=== PATIENT | male | born 1955 | race Caucasian/White ===

== ENCOUNTER 2017-08-07 12:42 | Observation (INO) | payer OTHER ==
[~2017-08-07] VITALS: Ht 185.4 cm; Wt 136.8 kg
[2017-08-07] MEDS ORDERED: OPTIRAY 320 IV PRN (13:15)
[2017-08-07 13:32] LABS: ISTAT CREATININE 1.2 mg/dl (0.6-1.3); ISTAT IONIZED CALCIUM 1.12 mmol/l (1.12-1.32); ISTAT POTASSIUM 4.6 mEq/L (3.3-5.0)
[2017-08-07 13:40] LABS: BASO % 0.3 %; BASO ABS # 0.02 K/uL (0-0.2); EOS % 1.4 %; EOS ABS # 0.09 K/uL (0-0.5); HEMATOCRIT 38.6 % (42-52); HEMOGLOBIN 13.1 g/dL (14.0-18.0); IG# 0.01 K/uL (0.00-0.02); LYMPH ABS # 1.56 K/uL (1.2-3.4); MEAN CELL VOLUME 92.3 fL (80-100); MEAN CORPUSCULAR HEMOGLOBIN 31.3 pg (25-34); MEAN CORPUSCULAR HGB CONC 33.9 g/dl (32-36); MEAN PLATELET VOLUME 8.8 fL (7.4-10.4); MONO % 8.8 %; MONO ABS # 0.55 K/uL (0.11-0.59); NEUT % 64.3 %; NEUT ABS # 4.01 K/uL (1.4-6.5); PLATELET COUNT 236 K/uL (130-400); RED CELL DISTRIBUTION WIDTH CV 14.7 % (11.5-14.5); RED CELL DISTRIBUTION WIDTH SD 49.7 fL (36.4-46.3); WHITE BLOOD COUNT 6.24 K/uL (4.8-10.8)
--- NOTE | 2017-08-07 13:50 | DIAGNOSTIC IMAGING REPORT ---
CT CHEST ANGIOGRAPHY WITHOUT A WITH GADOLINIUM CLINICAL HISTORY: Chest pain. History of aortic aneurysm. Evaluate for dissection. . COMPARISON STUDY: No previous studies for comparison. FINDINGS: Unenhanced images were obtained through the thorax. There is no evidence of acute aortic hematoma. The patient was then scanned in a dynamic helical fashion during intravenous administration of 119 cc of Optiray 320. A low-dose technique was utilized according to the principles of ALARA. MIP imaging was performed The thyroid gland is unremarkable in appearance. There is no evidence of thoracic aortic aneurysm. There are notable flaps to indicate dissection. The heart is mildly enlarged. There is trace pericardial fluid. Evaluation of the pulmonary arteries is limited due to respiratory motion artifact. No pulmonary emboli are delineated. There are borderline enlarged left hilar lymph nodes. There is a prevascular lymph node the upper limits of normal in size. There is no pneumothorax. There is no focal pulmonary consolidation. There are no pleural effusions. IMPRESSION: 1. No evidence of thoracic aortic aneurysm or dissection 2. No evidence of acute pulmonary embolism however the examination is significantly limited due to respiratory motion artifact 3. Borderline enlarged left hilar lymph nodes 4. No evidence of focal pulmonary consolidation Electronically signed by: Jorge Angeles M.D. 08/07/2017 1:49 PM Dictated Date/Time: 08/07/2017 1:42 PM
[2017-08-07] MEDS ORDERED: FRS/40 PO (13:52)
[2017-08-07] MEDS ORDERED: LCTX PO (13:52)
[2017-08-07] MEDS ORDERED: POTA10CA28 PO (13:52)
[2017-08-07] MEDS ORDERED: CLOB1OIN2 TOP (13:52)
[2017-08-07] MEDS ORDERED: OMEP20CA59 PO (13:52)
[2017-08-07] MEDS ORDERED: LEVO-14 PO (13:52)
[2017-08-07] MEDS ORDERED: FOLI1TAB8 PO (13:52)
[2017-08-07] MEDS ORDERED: MELA3TAB PO (13:52)
[2017-08-07] MEDS ORDERED: POLY1SOL12 OPB (13:52)
[2017-08-07] MEDS ORDERED: OLAN-111 PO (13:52)
[2017-08-07] MEDS ORDERED: NTRGSL/4 UT (13:52)
[2017-08-07] MEDS ORDERED: KPP/1000 PO (13:52)
[2017-08-07] MEDS ORDERED: THIA100T11 PO (13:52)
[2017-08-07] MEDS ORDERED: OPTOPS OPB (13:52)
[2017-08-07] MEDS ORDERED: ABL/15 PO (13:52)
[2017-08-07] MEDS ORDERED: ESCI1TAB10 PO (13:52)
[2017-08-07] MEDS ORDERED: ASPI81TA28 PO (13:52)
[2017-08-07] MEDS ORDERED: CHLO10CA7 PO (13:52)
[2017-08-07] MEDS ORDERED: TAMS0.4C38 PO (13:52)
[2017-08-07] MEDS ORDERED: METO50TA16 PO (13:52)
[2017-08-07] MEDS ORDERED: OXGN (13:52)
[2017-08-07] MEDS ORDERED: MULT1CAP16 PO (13:52)
[2017-08-07] MEDS ORDERED: WARF5TAB7 PO (13:52)
[2017-08-07] MEDS ORDERED: IPRA1AER2 INH (13:52)
[2017-08-07] MEDS ORDERED: [UNRECOGNIZED DRUG - CODE] OPB (13:52)
[2017-08-07] MEDS ORDERED: ZOLP5TAB PO (13:52)
[2017-08-07] MEDS ORDERED: CLR10 PO (13:52)
[2017-08-07] MEDS ORDERED: DICY10CA12 PO (13:52)
--- NOTE | 2017-08-07 13:59 | DIAGNOSTIC IMAGING REPORT ---
CT SCAN OF THE ABDOMEN AND PELVIS WITH IV CONTRAST CLINICAL HISTORY: Generalized abdominal pain. COMPARISON STUDY: No priors. TECHNIQUE: Following the IV administration of 119 cc of Optiray 320, CT scan of the abdomen and pelvis is performed from the lung bases to the proximal femora. Images are reviewed in the axial, sagittal, and coronal planes. IV contrast was administered without complication. A dose lowering technique was utilized adhering to the principles of ALARA. The examination is degraded by motion artifact, large body habitus, and by streak artifact from the arms which could not be elevated above the CT gantry. CT DOSE: 4095.47 mGy.cm FINDINGS: Lung bases: The heart is enlarged and without pericardial effusion. The lung bases are clear. There is a tiny hiatal hernia. Liver: Evaluation of the liver is degraded by streak artifact. The contrast-enhanced liver is top normal in size and demonstrates diffusely diminished attenuation consistent with hepatic steatosis. There is no intrahepatic biliary ductal dilatation. The hepatic veins and portal veins are patent. Gallbladder: Unremarkable. Spleen: Normal in size and attenuation. Pancreas: Moderately atrophic and grossly unremarkable. Adrenal glands: Unremarkable. Kidneys: The contrast enhanced kidneys are atrophic and without hydronephrosis. The kidneys enhance symmetrically. Scattered subcentimeter cortical hypodensities likely represent cysts but are too small for definitive characterization. Abdominal vasculature: The abdominal aorta is normal in course and caliber noting mild to moderate atherosclerotic calcification. Bowel: There is moderate to advanced colonic diverticulosis without CT evidence of acute diverticulitis. No bowel obstruction is seen. The appendix is well-visualized and normal. Peritoneum: There is no intraperitoneal free air or abdominal ascites. Lymphadenopathy: There are mildly enlarged retroperitoneal lymph nodes. The largest is seen on image #162 and measures 2.0 x 1.5 cm. A retrocaval node on image #211 measures 1.3 cm in short axis. Pelvic viscera: The bladder, prostate, and seminal vesicles are normal as visualized. Skeletal structures: The skeletal structures are osteopenic. There is a mild and age indeterminant compression deformity of L3. No lytic or blastic lesions are seen. Chronic posttraumatic deformity is seen within the right iliac wing. There are healed right-sided rib fractures. IMPRESSION: 1. Streak and motion compromised examination. 2. Mild retroperitoneal lymphadenopathy is nonspecific and could be on a reactive or neoplastic basis. Clinical correlation will be essential. 3. There is moderate to advanced colonic diverticulosis without CT evidence of acute epiglottis. 4. Hepatic steatosis. 5. There is a mild and age indeterminant superior end plate compression deformity of L3. Correlate for point tenderness at this level. 6. Cardiomegaly. 7. Additional findings as above. Electronically signed by: Jovani Hui M.D. 08/07/2017 1:58 PM Dictated Date/Time: 08/07/2017 1:51 PM
[2017-08-07 14:12] LABS: CALCIUM 8.3 mg/dl (8.5-10.1); CREATININE 1.21 mg/dl (0.60-1.40); POTASSIUM 3.6 mmol/L (3.5-5.1)
[2017-08-07] MEDS ORDERED: NITROGLYCERIN 2% OINTMENT 30GM TUBE EXT ONE (14:15)
[2017-08-07 14:35] LABS: INR 7.3 (0.9-1.1); PTT PATIENT 58.5 SECONDS (21.0-31.0)
--- NOTE | 2017-08-07 15:17 | DIAGNOSTIC IMAGING REPORT ---
BILATERAL LOWER EXTREMITY VENOUS DOPPLER CLINICAL HISTORY: Chest pain and leg swelling. COMPARISON STUDY: No previous studies for comparison. TECHNIQUE: Sonography of the deep venous system of the bilateral lower extremities was performed. Compression and augmentation were evaluated. FINDINGS: The bilateral common femoral, superficial femoral and popliteal veins were compressible. Augmentation was normal. Flow was shown within the deep calf vessels. IMPRESSION: No evidence of deep venous thrombus within the bilateral lower extremities. Electronically signed by: Patricio Lynn M.D. 08/07/2017 3:16 PM Dictated Date/Time: 08/07/2017 3:15 PM
[2017-08-07] MEDS ORDERED: NITROGLYCERIN 0.4 MG SL PER TAB CHARGE SL PRN (15:45)
[2017-08-07] MEDS ORDERED: ACETAMINOPHEN 325 MG TAB PO PRN (15:45)
[2017-08-07] MEDS ORDERED: ONDANSETRON INJ 2 MG/ML 2 ML VIAL IV PRN (15:45)
--- NOTE | 2017-08-07 16:02 | DIAGNOSTIC IMAGING REPORT ---
LEFT HIP 2 VIEWS HISTORY: Left hip pain COMPARISON: None. FINDINGS: There is no fracture or dislocation. Soft tissues are unremarkable. No radiopaque foreign bodies. Mild cartilage space narrowing within the left hip consistent with degenerative change. IMPRESSION: No fracture or dislocation within the left hip. Electronically signed by: Jez Boston M.D. 08/07/2017 4:00 PM Dictated Date/Time: 08/07/2017 3:57 PM
[2017-08-07] MEDS ORDERED: WARF5TAB90 PO (16:34)
[2017-08-07] MEDS ORDERED: CMD/25 PO (16:34)
[2017-08-07] MEDS ORDERED: IPRATROPIUM BROMIDE/ALBUTEROL respimat INH INH PRN (16:45)
--- NOTE | 2017-08-07 17:28 | EMERGENCY ROOM VISIT NOTE ---
History Report prepared by Renetta: Dolly Purdy Under the Supervision of: Dr. Hipolito Perez M.D. First contact with patient: 13:01 Chief Complaint: CHEST PAIN Stated Complaint: chest pain History of Present Illness The patient is a 61 year old male who presents to the Emergency Room with complaints of constant chest pain beginning this morning at 7:30 am, about five and a half hours ago. The patient [facility] his [facility] pain developed. The patient was given nitroglycerin twice in the ambulance which helped his pain. Presently, the patient reports his chest pain is nearly gone and he rates it as a 2/10. He notes left arm shaking but states his pain does not radiate all the way down his left arm. The patient states his left leg started to become swollen and painful a couple days ago. The patient has a history of phlebitis in legs and atrial fibrillation. He also has a history of thoracic aortic aneurysm which was discovered a year ago. He did not have surgery on his aortic aneurysm. The patient is on Coumadin for his atrial fibrillation. Source of History: patient Onset: five and a half Position: chest Symptom Intensity: 2/10 Quality: sharp Timing: constant Associated Symptoms: + chest pain Note: Pt notes left arm shaking. Review of Systems See HPI for pertinent positives & negatives. A total of 10 systems reviewed and were otherwise negative. Past Medical & Surgical Medical Problems: (1) A-fib (2) AA (aortic aneurysm) (3) Chest pain (4) Phlebitis Social History Marital Status: single Housing Status: lives alone Current/Historical Medications Scheduled Aripiprazole (Abilify), 15 MG PO HS Aspirin (Aspirin Ec), 81 MG PO DAILY Chlordiazepoxide (Librium), 10 MG PO HS Cromolyn Sodium (Ophth) (Opticrom Oph), 1 DROPS OPB QID Dicyclomine Hcl (Dicyclomine Hcl), 10 MG PO BID Escitalopram Oxalate (Lexapro), 20 MG PO DAILY Folic Acid (Folvite), 1 MG PO DAILY Furosemide (Lasix), 40 MG PO DAILY Home O2 Therapy (Oxygen), 2 LITERS NA UD Ketorolac Tromethamine (Ketorolac Tromethamine), 1 DROP OPB DAILY Lactobacillus Acidophilus (Lactinex), 1 TAB PO BID Levetiracetam (Keppra), 1,000 MG PO BID Levocetirizine Dihydrochloride (Levocetirizine Dihydrochl), 5 MG PO DAILY Metoprolol Tartrate (Lopressor) (Lopressor), 75 MG PO BID Multiple Vitamins W/ Minerals (Multi Complete), 1 CAP PO DAILY Omeprazole (Prilosec), 20 MG PO BID Potassium Chloride (Micro-K Ext Rel), 20 MEQ PO DAILY Tamsulosin Hcl (Flomax), 0.4 MG PO DAILY Thiamine Hcl (Vitamin B-1), 100 MG PO DAILY Warfarin Sod (Coumadin), 2.5 MG PO WK Warfarin Sodium (Coumadin), 5 MG PO 6XWK Zolpidem Tartrate (Ambien), 5 MG PO HS Scheduled PRN Clobetasol Propionate (Temovate), 1 APPLN TOP DAILY PRN for RASH Ipratropium-Albuterol (Combivent Respimat), 1 PUFFS INH Q4 PRN for Wheezing Melatonin (Melatonin), 3 MG PO HS PRN for Insomnia Nitroglycerin (Nitrostat), 0.4 MG UT PRN PRN for Chest Pain Polyvinyl Alcohol-Povidone (Op (Artificial Tears), 1 DROP OPB DAILY PRN for DRYNESS Allergies Uncoded Allergies: SEASONAL (Allergy, Unknown, ., 08/07/17) Physical Exam Vital Signs Date Time Temp Pulse Resp B/P (MAP) Pulse Ox O2 Delivery O2 Flow Rate FiO2 08/07/17 17:20 81 20 100/68 95 Nasal Cannula 2.0 08/07/17 16:20 80 18 113/80 95 Nasal Cannula 2.0 08/07/17 15:42 78 18 107/69 98 Room Air 08/07/17 14:46 80 20 115/88 96 Nasal Cannula 2.0 08/07/17 14:25 85 17 117/81 98 Room Air 08/07/17 14:02 87 18 108/81 97 Nasal Cannula 2.0 08/07/17 13:41 96 Nasal Cannula 2.0 08/07/17 13:02 100 08/07/17 12:50 36.6 101 20 110/70 93 Room Air 08/07/17 12:50 93 Room Air Physical Exam Constitutional: Vital signs reviewed. Eyes: Pupils are equal round reactive to light. Conjunctiva are noninjected. ENT: Pharynx is clear without erythema or exudate. Mucous membranes are moist. Neck supple without meningeal signs. Respiratory: Clear to auscultation bilaterally. Breath sounds are equal bilaterally. Cardiovascular: Regular rate and rhythm. No rubs or gallops. GI: Soft, nondistended and nontender. Bowel sounds are present. Musculoskeletal: Bilateral lower extremity pitting edema. Integumentary: No cyanosis. Neurological: The patient is awake and alert. No focal deficits. Psychiatric: Normal affect. Medical Decision & Procedures ER Provider Diagnostic Interpretation: Radiology results as stated below per my review and the radiologist's interpretation: CT SCAN OF THE ABDOMEN AND PELVIS WITH IV CONTRAST FINDINGS: Lung bases: The heart is enlarged and without pericardial effusion. The lung bases are clear. There is a tiny hiatal hernia. Liver: Evaluation of the liver is degraded by streak artifact. The contrast-enhanced liver is top normal in size and demonstrates diffusely diminished attenuation consistent with hepatic steatosis. There is no intrahepatic biliary ductal dilatation. The hepatic veins and portal veins are patent. Gallbladder: Unremarkable. Spleen: Normal in size and attenuation. Pancreas: Moderately atrophic and grossly unremarkable. Adrenal glands: Unremarkable. Kidneys: The contrast enhanced kidneys are atrophic and without hydronephrosis. The kidneys enhance symmetrically. Scattered subcentimeter cortical hypodensities likely represent cysts but are too small for definitive characterization. Abdominal vasculature: The abdominal aorta is normal in course and caliber noting mild to moderate atherosclerotic calcification. Bowel: There is moderate to advanced colonic diverticulosis without CT evidence of acute diverticulitis. No bowel obstruction is seen. The appendix is well-visualized and normal. Peritoneum: There is no intraperitoneal free air or abdominal ascites. Lymphadenopathy: There are mildly enlarged retroperitoneal lymph nodes. The largest is seen on image #162 and measures 2.0 x 1.5 cm. A retrocaval node on image #211 measures 1.3 cm in short axis. Pelvic viscera: The bladder, prostate, and seminal vesicles are normal as visualized. Skeletal structures: The skeletal structures are osteopenic. There is a mild and age indeterminant compression deformity of L3. No lytic or blastic lesions are seen. Chronic posttraumatic deformity is seen within the right iliac wing. There are healed right-sided rib fractures. IMPRESSION: 1. Streak and motion compromised examination. 2. Mild retroperitoneal lymphadenopathy is nonspecific and could be on a reactive or neoplastic basis. Clinical correlation will be essential. 3. There is moderate to advanced colonic diverticulosis without CT evidence of acute epiglottis. 4. Hepatic steatosis. 5. There is a mild and age indeterminant superior end plate compression deformity of L3. Correlate for point tenderness at this level. 6. Cardiomegaly. 7. Additional findings as above. Electronically signed by: Jovani Hui M.D. CT CHEST ANGIOGRAPHY WITHOUT A WITH GADOLINIUM FINDINGS: Unenhanced images were obtained through the thorax. There is no evidence of acute aortic hematoma. The patient was then scanned in a dynamic helical fashion during intravenous administration of 119 cc of Optiray 320. A low-dose technique was utilized according to the principles of ALARA. MIP imaging was performed The thyroid gland is unremarkable in appearance. There is no evidence of thoracic aortic aneurysm. There are notable flaps to indicate dissection. The heart is mildly enlarged. There is trace pericardial fluid. Evaluation of the pulmonary arteries is limited due to respiratory motion artifact. No pulmonary emboli are delineated. There are borderline enlarged left hilar lymph nodes. There is a prevascular lymph node the upper limits of normal in size. There is no pneumothorax. There is no focal pulmonary consolidation. There are no pleural effusions. IMPRESSION: 1. No evidence of thoracic aortic aneurysm or dissection 2. No evidence of acute pulmonary embolism however the examination is significantly limited due to respiratory motion artifact 3. Borderline enlarged left hilar lymph nodes 4. No evidence of focal pulmonary consolidation Electronically signed by: Jorge Angeles M.D. BILATERAL LOWER EXTREMITY VENOUS DOPPLER FINDINGS: The bilateral common femoral, superficial femoral and popliteal veins were compressible. Augmentation was normal. Flow was shown within the deep calf vessels. IMPRESSION: No evidence of deep venous thrombus within the bilateral lower extremities. Electronically signed by: Patricio Lynn M.D. Laboratory Results 08/07/17 13:15 Red Blood Count 4.18, Mean Corpuscular Volume 92.3, Mean Corpuscular Hemoglobin 31.3, Mean Corpuscular Hemoglobin Concent 33.9, Mean Platelet Volume 8.8, Neutrophils (%) (Auto) 64.3, Lymphocytes (%) (Auto) 25.0, Monocytes (%) (Auto) 8.8, Eosinophils (%) (Auto) 1.4, Basophils (%) (Auto) 0.3, Neutrophils # (Auto) 4.01, Lymphocytes # (Auto) 1.56, Monocytes # (Auto) 0.55, Eosinophils # (Auto) 0.09, Basophils # (Auto) 0.02 08/07/17 13:15 Test 08/07/17 13:15 08/07/17 13:19 White Blood Count 6.24 K/uL (4.8-10.8) Red Blood Count 4.18 M/uL (4.7-6.1) Hemoglobin 13.1 g/dL (14.0-18.0) Hematocrit 38.6 % (42-52) Mean Corpuscular Volume 92.3 fL (80-100) Mean Corpuscular Hemoglobin 31.3 pg (25-34) Mean Corpuscular Hemoglobin Concent 33.9 g/dl (32-36) Platelet Count 236 K/uL (130-400) Mean Platelet Volume 8.8 fL (7.4-10.4) Neutrophils (%) (Auto) 64.3 % Lymphocytes (%) (Auto) 25.0 % Monocytes (%) (Auto) 8.8 % Eosinophils (%) (Auto) 1.4 % Basophils (%) (Auto) 0.3 % Neutrophils # (Auto) 4.01 K/uL (1.4-6.5) Lymphocytes # (Auto) 1.56 K/uL (1.2-3.4) Monocytes # (Auto) 0.55 K/uL (0.11-0.59) Eosinophils # (Auto) 0.09 K/uL (0-0.5) Basophils # (Auto) 0.02 K/uL (0-0.2) RDW Standard Deviation 49.7 fL (36.4-46.3) RDW Coefficient of Variation 14.7 % (11.5-14.5) Immature Granulocyte % (Auto) 0.2 % Immature Granulocyte # (Auto) 0.01 K/uL (0.00-0.02) Prothrombin Time 74.1 SECONDS (9.0-12.0) Prothromb Time International Ratio 7.3 (0.9-1.1) Activated Partial Thromboplast Time 58.5 SECONDS (21.0-31.0) Partial Thromboplastin Ratio 2.3 Est Creatinine Clear Calc Drug Dose 96.7 ml/min Estimated GFR () 75.5 Estimated GFR (Non- 65.1 BUN/Creatinine Ratio 11.9 (10-20) Calcium Level 8.3 mg/dl (8.5-10.1) Bedside Hemoglobin 12.9 g/dl (14.0-18.0) Bedside Hematocrit 38 % (42-52) Bedside D-Dimer > 450 ng/mlFEU (0-450) Bedside Sodium 140 mEq/L (135-144) Bedside Potassium 4.6 mEq/L (3.3-5.0) Bedside Chloride 104 mEq/L (101-112) Bedside Total CO2 28 mEq/l (24-31) Anion Gap 13.0 mmol/L (16-25) Bedside Blood Urea Nitrogen 17 mg/dl (7-18) Bedside Creatinine 1.2 mg/dl (0.6-1.3) Bedside Glucose (other) 102 mg/dl (70-99) Bedside Ionized Calcium (Alexey) 1.12 mmol/l (1.12-1.32) Bedside Troponin I < 0.030 ng/ml (0-0.045) D-dimer 660, troponin 0.01 Laboratory results as reviewed by me. Medications Administered Medications (Trade) Dose Ordered Sig/Ani Route Start Time Stop Time Status Last Admin Dose Admin Nitroglycerin (Nitroglycerin 2% Oint) 0.5 inch NOW ONCE EXT 08/07/17 14:15 08/07/17 14:16 DC 08/07/17 14:12 0.5 INCH ECG Indication: chest pain Rate (beats per minute): 106 Rhythm: atrial fibrillation Findings: other (no ST elevation, QRS 110 ms) ED Course This is a 61-year-old male who presents with chest pain. Differential diagnosis includes aortic dissection, pulmonary embolism, [place], unstable angina, GERD, DVT. I did perform a limited focused review of portions of the patient's old chart on the electronic medical record. The patient has had no prior visits to this hospital. I did evaluate the patient as noted above. Patient states he developed sharp chest pain this morning. He states it radiates slightly down his left arm. He was short of breath with it. He is on Coumadin for history of atrial fibrillation. The states that he has an aortic aneurysm in his chest but has not had any surgery for this. This was discovered a year ago. IV access was established. The patient was placed on a continuous teletypesetter monitor. I did order and personally review the patient's 12-lead EKG as described above. I did order and review the patient's blood work as noted in the electronic medical record. I did order a stat CT of the chest, abdomen and pelvis to rule out aortic dissection or PE. I did review the images myself as well as the radiology report as described above. There is no evidence of aneurysm or dissection. I did discuss the test results with patient he was given nitro paste here. His chest by an resolved. I did recommend hospitalization for further evaluation. His d-dimer was elevated but his troponin was normal. I did order Dopplers of the lower extremities throughout DVT. His INR came back greater than 7. It seems unlikely that the Dopplers will come back positive but we will wait for the ultrasound before administering vitamin K. I did discuss the case with the hospitalist and heel caser. Medical Decision 1304: The patient was evaluated in room B9. A complete history and physical exam was performed. 1403: I discussed the patient's test results with him. He is headed to ultrasound. 1415: Ordered Nitroglycerin 0.5 inch EXT. 1440: I updated the patient on his test results. He is agreeable to the treatment plan. 1448: I spoke with Annalisa Keller. We discussed the patient and his results. The patient will be further evaluated by her. Medication Reconcilliation Current Medication List: was personally reviewed by me Blood Pressure Screening Patient's blood pressure: Elevated blood pressure Blood pressure disposition: Referred to PCP Consults Time Called: 1446 Consulting Physician: Annalisa Keller Returned Call: 1448 I spoke with Annalisa Keller. We discussed the patient and his results. The patient will be further evaluated by her. Impression Primary Impression: Acute chest pain Additional Impressions: Supratherapeutic INR Left leg pain Scribe Attestation The scribe's documentation has been prepared under my direct and personally reviewed by me in its entirety. I confirm that the note above accurately reflects all work, treatment, procedures, and medical decision making performed by me. Departure Information Dispostion Being Evaluated By Hospitalist Patient Instructions My [facility] Problem Qualifiers
[2017-08-07 19:00] VITALS: BP 138/98; PULSE 93; TEMP 36.2; Ht 185.4 cm; Wt 136.8 kg
--- NOTE | 2017-08-07 19:15 | History and Physical ---
History & Physical Date & Time of Service: Aug 07, 2017 ~ 15:00 Chief Complaint: Chest Pain Primary Care Physician: [facility] History of Present Illness 61 year old male who presents to the ED with chest pain. Patient reports he was getting ready for a doctor's appointment when he developed chest pain. Patient describes the pain as located midsternally with radiation over to the left side. He describes it as an ache. He rated the pain #6/10. Pain was constant. He denies any radiation of the pain into the neck, jaw, or arm. He did report his left arm felt numb and it was shaking. He had mild diaphoresis. Denies shortness of breath, nausea, lightheadedness, dizziness, or syncope. He went to his PCP who referred him to the ED for further evaluation. EMS was called and patient received 2 SL nitro. Nitro paste was then applied in the ED. Patient reports discomfort has significantly improved. He reports he developed left hip a few days ago. Pain radiates down the front and back of the leg. He denies any injury or trauma. No recent illnesses, fevers, or chills. No abdominal pain, vomiting, or diarrhea. He denies cough and sputum production. He denies urinary symptoms. In the ED, initial troponin is negative and EKG is without acute ST changes. He is hemodynamically stable. Past Medical/Surgical History Medical Problems: (1) Alcohol abuse Status: Chronic (2) Ascending aortic aneurysm Permanent Comment: 06/2016 - 4cm per CT chest Status: Chronic (3) Atrial fibrillation Status: Chronic (4) Bipolar 1 disorder Status: Chronic (5) BPH (benign prostatic hyperplasia) Status: Chronic (6) CAD (coronary artery disease) Permanent Comment: presumed from abnormal nuclear stress test 06/2016 - small defect at the apical and anterior apex Status: Chronic (7) CVA (cerebral vascular accident) Status: Chronic (8) Diastolic CHF Permanent Comment: echo 04/2017 suggests diastolic dysfunction Status: Chronic (9) Hepatitis C Status: Chronic (10) HTN (hypertension) Status: Chronic (11) Seizure disorder Status: Chronic Social History Smoking Status: Former Smoker Alcohol Use: former heavy ETOH use Immunizations History of Influenza Vaccine: Yes Influenza Vaccine Date: Apr 26, 2017 Allergies Uncoded Allergies: SEASONAL (Allergy, Unknown, ., 08/07/17) Home Medications Scheduled Aripiprazole (Abilify), 15 MG PO HS Aspirin (Aspirin Ec), 81 MG PO DAILY Chlordiazepoxide (Librium), 10 MG PO HS Cromolyn Sodium (Ophth) (Opticrom Oph), 1 DROPS OPB QID Dicyclomine Hcl (Dicyclomine Hcl), 10 MG PO BID Escitalopram Oxalate (Lexapro), 20 MG PO DAILY Folic Acid (Folvite), 1 MG PO DAILY Furosemide (Lasix), 40 MG PO DAILY Home O2 Therapy (Oxygen), 2 LITERS NA UD Ketorolac Tromethamine (Ketorolac Tromethamine), 1 DROP OPB DAILY Lactobacillus Acidophilus (Lactinex), 1 TAB PO BID Levetiracetam (Keppra), 1,000 MG PO BID Levocetirizine Dihydrochloride (Levocetirizine Dihydrochl), 5 MG PO DAILY Metoprolol Tartrate (Lopressor) (Lopressor), 75 MG PO BID Multiple Vitamins W/ Minerals (Multi Complete), 1 CAP PO DAILY Omeprazole (Prilosec), 20 MG PO BID Potassium Chloride (Micro-K Ext Rel), 20 MEQ PO DAILY Tamsulosin Hcl (Flomax), 0.4 MG PO DAILY Thiamine Hcl (Vitamin B-1), 100 MG PO DAILY Warfarin Sod (Coumadin), 2.5 MG PO WK Warfarin Sodium (Coumadin), 5 MG PO 6XWK Zolpidem Tartrate (Ambien), 5 MG PO HS Scheduled PRN Clobetasol Propionate (Temovate), 1 APPLN TOP DAILY PRN for RASH Ipratropium-Albuterol (Combivent Respimat), 1 PUFFS INH Q4 PRN for Wheezing Melatonin (Melatonin), 3 MG PO HS PRN for Insomnia Nitroglycerin (Nitrostat), 0.4 MG UT PRN PRN for Chest Pain Polyvinyl Alcohol-Povidone (Op (Artificial Tears), 1 DROP OPB DAILY PRN for DRYNESS Review of Systems ROS per HPI, all other systems reviewed and negative Physical Exam Vital Signs Date Time Temp Pulse Resp B/P (MAP) Pulse Ox O2 Delivery O2 Flow Rate FiO2 08/07/17 17:20 81 20 100/68 95 Nasal Cannula 2.0 08/07/17 16:20 80 18 113/80 95 Nasal Cannula 2.0 08/07/17 15:42 78 18 107/69 98 Room Air 08/07/17 14:46 80 20 115/88 96 Nasal Cannula 2.0 08/07/17 14:25 85 17 117/81 98 Room Air 08/07/17 14:02 87 18 108/81 97 Nasal Cannula 2.0 08/07/17 13:41 96 Nasal Cannula 2.0 08/07/17 13:02 100 08/07/17 12:50 36.6 101 20 110/70 93 Room Air 08/07/17 12:50 93 Room Air General Appearance: WD/WN, no apparent distress Head: normocephalic, atraumatic Eyes: normal inspection, EOMI, sclerae normal ENT: hearing grossly normal, + pertinent finding (mucous membranes moist) Neck: supple, no JVD, trachea midline Respiratory/Chest: no respiratory distress, + decreased breath sounds (BL bases ) Cardiovascular: regular rate, rhythm, normal peripheral pulses, + pertinent finding (trace edema BLLE) Abdomen/GI: normal bowel sounds, non tender, soft, no organomegaly Extremities/Musculoskelatal: no calf tenderness, normal capillary refill, + pertinent finding (tenderness with palpation over the left hip) Neurologic/Psych: no motor/sensory deficits, alert, normal mood/affect, oriented x 3 Skin: normal color, warm/dry Diagnostics Laboratory Results Results Past 24 Hours Test 08/07/17 13:15 08/07/17 13:19 Range/Units White Blood Count 6.24 4.8-10.8 K/uL Red Blood Count 4.18 4.7-6.1 M/uL Hemoglobin 13.1 14.0-18.0 g/dL Hematocrit 38.6 42-52 % Mean Corpuscular Volume 92.3 80-100 fL Mean Corpuscular Hemoglobin 31.3 25-34 pg Mean Corpuscular Hemoglobin Concent 33.9 32-36 g/dl Platelet Count 236 130-400 K/uL Mean Platelet Volume 8.8 7.4-10.4 fL Neutrophils (%) (Auto) 64.3 % Lymphocytes (%) (Auto) 25.0 % Monocytes (%) (Auto) 8.8 % Eosinophils (%) (Auto) 1.4 % Basophils (%) (Auto) 0.3 % Neutrophils # (Auto) 4.01 1.4-6.5 K/uL Lymphocytes # (Auto) 1.56 1.2-3.4 K/uL Monocytes # (Auto) 0.55 0.11-0.59 K/uL Eosinophils # (Auto) 0.09 0-0.5 K/uL Basophils # (Auto) 0.02 0-0.2 K/uL RDW Standard Deviation 49.7 36.4-46.3 fL RDW Coefficient of Variation 14.7 11.5-14.5 % Immature Granulocyte % (Auto) 0.2 % Immature Granulocyte # (Auto) 0.01 0.00-0.02 K/uL Prothrombin Time 74.1 9.0-12.0 SECONDS Prothromb Time International Ratio 7.3 0.9-1.1 Activated Partial Thromboplast Time 58.5 21.0-31.0 SECONDS Partial Thromboplastin Ratio 2.3 Sodium Level 142 136-145 mmol/L Potassium Level 3.6 3.5-5.1 mmol/L Chloride Level 108 98-107 mmol/L Carbon Dioxide Level 25 21-32 mmol/L Anion Gap 9.0 13.0 16-25 mmol/L Blood Urea Nitrogen 14 7-18 mg/dl Creatinine 1.21 0.60-1.40 mg/dl Est Creatinine Clear Calc Drug Dose 96.7 ml/min Estimated GFR () 75.5 Estimated GFR (Non- 65.1 BUN/Creatinine Ratio 11.9 10-20 Random Glucose 99 70-99 mg/dl Calcium Level 8.3 8.5-10.1 mg/dl Bedside Hemoglobin 12.9 14.0-18.0 g/dl Bedside Hematocrit 38 42-52 % Bedside D-Dimer > 450 0-450 ng/mlFEU Bedside Sodium 140 135-144 mEq/L Bedside Potassium 4.6 3.3-5.0 mEq/L Bedside Chloride 104 101-112 mEq/L Bedside Total CO2 28 24-31 mEq/l Bedside Blood Urea Nitrogen 17 7-18 mg/dl Bedside Creatinine 1.2 0.6-1.3 mg/dl Bedside Glucose (other) 102 70-99 mg/dl Bedside Ionized Calcium (Alexey) 1.12 1.12-1.32 mmol/l Bedside Troponin I < 0.030 0-0.045 ng/ml Diagnostic Radiology CTA CHEST IMPRESSION: 1. No evidence of thoracic aortic aneurysm or dissection 2. No evidence of acute pulmonary embolism however the examination is significantly limited due to respiratory motion artifact 3. Borderline enlarged left hilar lymph nodes 4. No evidence of focal pulmonary consolidation CT ABD/PELVIS IMPRESSION: 1. Streak and motion compromised examination. 2. Mild retroperitoneal lymphadenopathy is nonspecific and could be on a reactive or neoplastic basis. Clinical correlation will be essential. 3. There is moderate to advanced colonic diverticulosis without CT evidence of acute epiglottis. 4. Hepatic steatosis. 5. There is a mild and age indeterminant superior end plate compression deformity of L3. Correlate for point tenderness at this level. 6. Cardiomegaly. BLLE DOPPLER IMPRESSION: No evidence of deep venous thrombus within the bilateral lower extremities. LEFT HIP XR IMPRESSION: No fracture or dislocation within the left hip. Impression Assessment and Plan CHEST PAIN - admit to tele - patient presenting with midsternal chest pain that radiated to left side of the chest with associated left arm numbness, pain improved with SL nitro x 2 and nitro paste - 06/2016 - nuclear stress test showed small defect at the apical and anterior apex - 08/2016 - dobutamine stress echo negative for ischemic - initial troponin negative, EKG shows T-wave flattening in the inferior and lateral leads - continue to cycle cardiac enzymes, chest resting echo - PRN nitro and EKG with further chest pain - low suspicion for PE given past several supra therapeutic INRs - continue ASA and beta tarun, check lipids in AM - cardio consult LEFT HIP PAIN - XR negative for acute findings - has an appointment with ortho as an outpatient - PT/OT ATRIAL FIBRILLATION - rate mildly elevated on arrival, now improved - rate controlled on metoprolol, will continue - on Coumadin, INR 7.3; no signs of bleeding, hold Coumadin tonight, monitor INR CHRONIC DIASTOLIC CHF - appears euvolemic - continue Lasix HX CVA - continue statin HX ASCENDING AORTIC ANEURYSM - 4cm per CT chest 06/2016; not mentioned on CTA chest today BIPOLAR - continue home meds SEIZURE DISORDER - continue Keppra DVT PROPHYLAXIS - on Coumadin, supra therapeutic INR DISPO - The patient will be placed as observation status for now until further work up is complete. ADDENDUM: This is a 61 year old male with a PMH of bipolar disorder, alcohol abuse, seizure disorder, A. fib and chronic diastolic CHF - presents with chest pain and L hip pain. He mentions that the pain is constant about 3-4 out of 10 and in center of his chest, no radiation. Upon presentation, EKG with no T wave or ST changes, but in atrial fibrillation. initial cardiac enzymes negative CT negative for dissection, bilateral LE dopplers negative for DVT. Plan is to observe overnight cycle cardiac enzymes check an EKG in AM echo PT/OT for his L hip outpatient ortho appt at the end of July cardiology consulted for further input may need to start statin VTE Prophylaxis VTE Risk Assessment Done? Y/N: Yes Risk Level: Moderate
[2017-08-07 20:20] VITALS: BP 124/85; PULSE 79; TEMP 36.7; O2SAT 93
[2017-08-07 20:35] LABS: CKMB 2.7 ng/ml (0.5-3.6)
[2017-08-07] MEDS: DICYCLOMINE HCL 10 MG CAP PO SCH (20:55)
[2017-08-07] MEDS: ARIPIprazole TAB 15 MG TAB PO SCH (20:55)
[2017-08-07] MEDS: LEVETIRACETAM 500 MG TAB PO SCH (20:55)
[2017-08-07] MEDS: LACTOBACILLUS ACIDOPHILUS (FLORANEX) TAB PO SCH (20:55)
[2017-08-07] MEDS: METOPROLOL TARTRATE 50 MG TAB PO SCH (20:56)
[2017-08-07] MEDS: PANTOprazole SOD 40 MG TAB PO SCH (20:56)
[2017-08-07] MEDS: CHLORDIAZEPOXIDE 10 MG CAP PO SCH (20:58)
[2017-08-08 00:34] VITALS: BP 130/81; PULSE 75; TEMP 36.9; O2SAT 95
[2017-08-08 01:25] LABS: CKMB 2.2 ng/ml (0.5-3.6)
[2017-08-08 05:38] VITALS: BP 127/88; PULSE 83; TEMP 36.7; O2SAT 96
[2017-08-08 07:52] VITALS: BP 115/86; PULSE 99; TEMP 37; O2SAT 96
[2017-08-08] MEDS: LEVETIRACETAM 500 MG TAB PO SCH ×2 (07:52→20:46)
[2017-08-08] MEDS: ASPIRIN 81 MG ECTAB PO SCH (07:52)
[2017-08-08] MEDS: ESCITALOPRAM OXALATE 20 MG TAB PO SCH (07:53)
[2017-08-08] MEDS: CEROVITE ADV FORMULA TAB PO SCH (07:53)
[2017-08-08] MEDS: THIAMINE HCL 100 MG TAB PO SCH (07:53)
[2017-08-08] MEDS: DICYCLOMINE HCL 10 MG CAP PO SCH ×2 (07:53→20:47)
[2017-08-08] MEDS: METOPROLOL TARTRATE 50 MG TAB PO SCH ×2 (07:53→20:46)
[2017-08-08] MEDS: FUROSEMIDE 40 MG TAB PO SCH (07:53)
[2017-08-08] MEDS: LACTOBACILLUS ACIDOPHILUS (FLORANEX) TAB PO SCH ×2 (07:53→20:47)
[2017-08-08] MEDS: PANTOprazole SOD 40 MG TAB PO SCH ×2 (07:53→20:49)
[2017-08-08] MEDS: TAMSULOSIN HCL 0.4 MG CAP PO SCH (07:53)
[2017-08-08] MEDS: POTASSIUM CHLORIDE 10 MEQ TABCR PO SCH (07:53)
[2017-08-08] MEDS ORDERED: CEROVITE ADV FORMULA TAB PO SCH (09:00)
[2017-08-08 09:31] LABS: HEMATOCRIT 40.9 % (42-52); HEMOGLOBIN 13.5 g/dL (14.0-18.0); MEAN CELL VOLUME 92.5 fL (80-100); MEAN CORPUSCULAR HEMOGLOBIN 30.5 pg (25-34); MEAN PLATELET VOLUME 8.8 fL (7.4-10.4); PLATELET COUNT 243 K/uL (130-400); RED CELL DISTRIBUTION WIDTH CV 14.4 % (11.5-14.5); RED CELL DISTRIBUTION WIDTH SD 49.1 fL (36.4-46.3); WHITE BLOOD COUNT 7.36 K/uL (4.8-10.8)
[2017-08-08 09:41] LABS: HEMOGLOBIN A1C 6.2 % (4.5-5.6)
[2017-08-08 09:45] LABS: INR 5.6 (0.9-1.1)
[2017-08-08 10:01] LABS: CALCIUM 8.1 mg/dl (8.5-10.1); CREATININE 1.3 mg/dl (0.60-1.40); POTASSIUM 3.4 mmol/L (3.5-5.1)
[2017-08-08 11:40] VITALS: BP 113/78; PULSE 74; TEMP 36.7; O2SAT 95
[2017-08-08] MEDS ORDERED: PERFLUTREN LIPID MICROSPHERE (DEFINITY) IV ONE (14:21)
--- NOTE | 2017-08-08 14:45 | CARDIOLOGY CONSULTATION ---
DATE OF CONSULTATION: 08/08/2017 DATE OF CONSULTATION: 08/08/2017 REFERRING: ADI Howell. PRIMARY CARE PHYSICIAN: Dr. Correa. HISTORY OF PRESENT ILLNESS: The patient is a 61-year-old male whose underlying history is notable for hypertension, chronic atrial fibrillation, morbid obesity, chronic diastolic heart failure, presumed coronary disease by past abnormal stress testing, mildly dilated ascending aorta, evaluation and notable history for recent evaluation on 07/15/2017 for severe obstructive sleep apnea and chronic obstructive lung disease. Underlying issues also include bipolar disorder and past seizure history. The patient wears oxygen chronically at night due to above concerns. He carries a history of past hepatitis C, chronic diverticulosis. The patient presents now having been admitted to [facility] with now greater than 24 hours history of low level chest pressure pain. Symptoms are described as severity of 4/6 in the mid epigastric area without radiation. Notes left arm feels numb, predominant history and complaints are difficulties with left hip and lower leg pain. Symptoms have been persistent for several days and are limiting. He is anticipating physician appointment evaluation day of admission, but pain became severe and he felt both arm shaking, left greater than right, and he presented to the Emergency Room for further evaluation. Symptoms of low grade chest pain were evaluated by CT scan of the chest without significant abnormality. EKGs serially demonstrated no ischemia other than with chronic atrial fibrillation present and serial cardiac enzymes which have been negative for injury or infarct. Echocardiogram remains pending. The patient continues to have a grade 3/6 discomfort though main complaints on discussion with the patient continued to be left hip pain. REVIEW OF SYSTEMS: He notes no recent fevers or chills, has low grade cough without sputum production. He was treated with antibiotics and corticosteroids at the end of June for complaints of worsening cough. Notes no worsening edema, weight has been generally stable per his description. Denies acute headache or visual changes. Wears oxygen at night due to nocturnal hypoxia and sleep apnea. Records reflect inability to use BiPAP per pulmonology note, though patient denies ever having tried it on discussion today. ALLERGIES: None. MEDICATIONS PRIOR TO HOSPITALIZATION: Per list were Abilify 15 mg at bedtime, aspirin 81 mg per day, Librium 10 mg at bedtime, opticrom eyedrops, Temovate skin ointment, Lexapro 20 mg p.o. daily, folic acid 1 mg per day, furosemide 40 mg daily, 2 liters nasal cannula oxygen at night, Keppra 1000 mg b.i.d., levocetirizine 5 mg p.o. daily, melatonin 3 mg at bedtime, metoprolol tartrate 75 mg twice per day, multivitamin per day, omeprazole 20 mg b.i.d., potassium chloride 20 mEq p.o. every day, Flomax, thiamine and warfarin, Ambien p.r.n. sleep. PAST SURGICAL HISTORY: Notable for multiple procedures on ankles bilaterally. SOCIAL HISTORY: The patient is prior smoker, discontinued approximately 1 year ago with greater than 50 pack years tobacco use, has a history of past alcohol use but only occasional drink currently. PHYSICAL EXAMINATION: GENERAL: The patient is an obese, age-appropriate male denying acute distress, but overall on questioning does admit to low level grade 3 chest pressure discomfort and hip pain. VITAL SIGNS: Reveal a heart rate of 74, blood pressure is 113/78. HEAD, EYES, EARS, NOSE, AND THROAT: Normocephalic, atraumatic. NECK: Thick. There is no distinct jugular venous distention. There are no carotid bruits. LUNGS: Clear to auscultation with diminished breath sounds diffusely. Wheezes can be exacerbated by forced expiration and cough. CARDIOVASCULAR: Irregular irregular with distant heart sounds. There is no S3 gallop. ABDOMEN: Obese, soft, nontender. EXTREMITIES: Without cyanosis or clubbing. There is no peripheral edema. There is no palpable cord or Venkatesh sign. LABORATORY DATA: As noted, serial EKGs demonstrate chronic atrial fibrillation, no acute ST segment changes other than T-wave inversion in lead 3. Cardiac enzymes are negative for injury or infarct. White cell count 7.3, hemoglobin is 13.5, hematocrit is 40.9, platelet count is 243. Potassium this morning was 3.4. INR is supratherapeutic at 5.6 with initial presentation of 7.3. IMPRESSION: A 61-year-old male with complex history of chronic atrial fibrillation, morbid obesity, obstructive sleep apnea on nocturnal oxygen, presents now with low level grade 3-6 chest discomfort. Symptoms have been persistent for greater than 24 hours with no dynamic EKG changes. Enzymes do not reflect acute myocardial infarction. Symptoms not specifically worsened by activity. He does carry a history of possible underlying ischemic heart disease by borderline abnormal stress testing in the past. Plan will be to review echocardiogram as available. Continue current medications. I raised concerns that possible symptoms may have been exacerbated by recent antibiotic and corticosteroid course with supratherapeutic INR present. I have made no adjustments in medical therapy for time being. Would recommend continuing beta tarun with metoprolol 75 mg twice per day. Increase activities in hospital.
[2017-08-08 15:16] VITALS: BP 127/86; PULSE 58; TEMP 36.9; O2SAT 97
--- NOTE | 2017-08-08 15:26 | ECHOCARDIOGRAM REPORT ---
*NOTICE TO RECEIVING DEMOCRAT AGENCY This information is strictly Confidential and protected under [place] law. [place] law prohibits you from making any further disclosure of this information unless further disclosure is expressly permitted by the written consent of the person to whom it pertains or is authorized by law. A general authorization for the release of medical or other information is not sufficient for this purpose. Hospital accepts no responsibility if the information is made available to any other person, INCLUDING THE PATIENT. Interpretation Summary * Name: MAYRA PASTRANA Study Date: 08/08/2017 02:01 PM BP: 113/78 mmHg * Patient Location: [facility] HR: 74 * : 1955 (M/d/yyyy) Gender: Male Height: 73 in * Age: 61 yrs Ethnicity: CA Weight: 309 lb * Performed By: Genie Catalan RDCS * * Reason For Study: CHEST PAIN * BSA: 2.6 m2 * -- Conclusions -- * The study was technically difficult. * A contrast injection of Definity was performed to improve assessment of LV function. * The left ventricle is normal in size. * There is moderate concentric left ventricular hypertrophy. * No regional wall motion abnormalities noted. * Left ventricular systolic function is normal. * Ejection Fraction = 50-55%. * There is no pericardial effusion. * The aortic root is normal size. Procedure Details * A contrast injection of Definity was performed to improve assessment of LV function. * Contrast was injected into an intravenous site in the right arm. * One vial of Definity ultrasound contrast was diluted in normal saline to a total volume of 10 ml. A total of '2' ml of solution was administered during imaging. * Lot # [id number] of Definity utilized for procedure. * Expiration date 1 SEP 14. * The attending nurse who injected the contrast agent was SALMA VICKERS. * A complete two-dimensional transthoracic echocardiogram was performed (2D, M-mode, Doppler and color flow Doppler). * The study was technically difficult. Left Ventricle * The left ventricle is normal in size. * There is moderate concentric left ventricular hypertrophy. * Ejection Fraction = 50-55%. * Left ventricular systolic function is normal. * No regional wall motion abnormalities noted. Right Ventricle * The right ventricle is normal in size and function. Atria * The left atrial size is normal. * Right atrial size is normal. * No ASD detected; PFO is not assessed. Mitral Valve * The mitral valve anatomy is normal. * There is no mitral valve stenosis. * There is trace mitral regurgitation. Tricuspid Valve * The tricuspid valve anatomy is normal. * There is no tricuspid stenosis. * There is trace tricuspid regurgitation. Aortic Valve * The aortic valve is trileaflet. * No hemodynamically significant valvular aortic stenosis. * No aortic regurgitation is present. Pulmonic Valve * The pulmonic valve is not well visualized. Great Vessels * The aortic root is normal size. Pericardium/Pleural * There is no pericardial effusion. MMode 2D Measurements and Calculations IVSd 1.8 cm IVSs 2.0 cm LVIDd 3.9 cm LVIDs 2.9 cm LVPWd 1.9 cm LVPWs 2.6 cm IVS/LVPW 0.94 FS 25.1 % EDV(Teich) 67.4 ml ESV(Teich) 33.5 ml EF(Teich) 50.2 % EDV(cubed) 61.0 ml ESV(cubed) 25.6 ml EF(cubed) 58.0 % % IVS thick 11.9 % % LVPW thick 33.4 % LV mass(C)d 326.0 grams LV mass(C)dI 125.9 grams/m\S\2 LV mass(C)s 336.8 grams LV mass(C)sI 130.1 grams/m\S\2 SV(Teich) 33.8 ml SI(Teich) 13.1 ml/m\S\2 SV(cubed) 35.3 ml SI(cubed) 13.7 ml/m\S\2 Ao root diam 3.8 cm Ao root area 11.6 cm\S\2 LA dimension 4.7 cm LA/Ao 1.2 LVAd ap4 37.2 cm\S\2 LVLd ap4 8.5 cm EDV(MOD-sp4) 132.1 ml EDV(sp4-el) 138.1 ml LVAs ap4 23.0 cm\S\2 LVLs ap4 6.8 cm ESV(MOD-sp4) 63.4 ml ESV(sp4-el) 65.9 ml EF(MOD-sp4) 52.0 % EF(sp4-el) 52.3 % LVAd ap2 30.2 cm\S\2 LVLd ap2 8.4 cm EDV(MOD-sp2) 89.3 ml EDV(sp2-el) 92.3 ml LVAs ap2 20.1 cm\S\2 LVLs ap2 7.8 cm ESV(MOD-sp2) 43.1 ml ESV(sp2-el) 44.0 ml EF(MOD-sp2) 51.7 % EF(sp2-el) 52.3 % LVLd %diff -1.14 % EDV(MOD-bp) 110.2 ml LVLs %diff 12.7 % ESV(MOD-bp) 54.6 ml EF(MOD-bp) 50.5 % SV(MOD-sp4) 68.7 ml SI(MOD-sp4) 26.5 ml/m\S\2 SV(MOD-sp2) 46.2 ml SI(MOD-sp2) 17.8 ml/m\S\2 SV(MOD-bp) 55.7 ml SI(MOD-bp) 21.5 ml/m\S\2 SV(sp4-el) 72.2 ml SI(sp4-el) 27.9 ml/m\S\2 SV(sp2-el) 48.3 ml SI(sp2-el) 18.7 ml/m\S\2 Doppler Measurements and Calculations Ao V2 max 100.9 cm/sec Ao max PG 4.1 mmHg Ao max PG (full) 1.7 mmHg LV V1 max PG 2.4 mmHg LV V1 max 76.9 cm/sec
[2017-08-08] MEDS: OXYCODONE/ACETAMINOPHEN 5-325 TAB PO PRN ×2 (16:06→20:55)
--- NOTE | 2017-08-08 16:51 | Progress Note ---
Internal Med Progress Note Date of Service: Aug 08, 2017. Provider Documentation: SUBJECTIVE: The patient was seen and examined Non specific chest pain Also complains of left groin/hip pain Denies any associated symptoms OBJECTIVE: Vital Signs-as noted below Exam: General-no distress at rest Eyes-normal ENT-normal Neck-supple Lungs-Clear to auscultate bilaterally Heart-Irregular,no murmur Abdomen-Benign,no masses,bowel sound present Extremities-no edema Examination of the left hip -mild pain on movement Neuro-AAOx3 Lab data as noted below. ASSESSMENT & PLAN: CHEST PAIN - admit to tele - patient presenting with midsternal chest pain that radiated to left side of the chest with associated left arm numbness, pain improved with SL nitro x 2 and nitro paste - 06/2016 - nuclear stress test showed small defect at the apical and anterior apex - 08/2016 - dobutamine stress echo negative for ischemic - initial troponin negative, EKG shows T-wave flattening in the inferior and lateral leads - continue to cycle cardiac enzymes, chest resting echo-unremarkable -CTA negative for dissection and no DVT - continue ASA and beta tarun, check lipids in AM - cardio consult -appreciate input LEFT HIP PAIN-Secondary to OA - XR negative for acute findings - has an appointment with ortho as an outpatient - PT/OT -tsering start small dose of Percocet ATRIAL FIBRILLATION - rate mildly elevated on arrival, now improved - rate controlled on metoprolol, will continue - on Coumadin, INR 7.3; no signs of bleeding, hold Coumadin tonight, monitor INR -rate is controlled monitor INR HX ASCENDING AORTIC ANEURYSM - 4cm per CT chest 06/2016; not mentioned on CTA chest today -no symptoms CHRONIC DIASTOLIC CHF - appears euvolemic and CXR -negative - continue Lasix HX CVA - continue statin BIPOLAR - continue home Meds SEIZURE DISORDER - continue Keppra DVT PROPHYLAXIS - on Coumadin, supra therapeutic INR DISPO - The patient will be placed as observation status for now until further work up is complete. Vital Signs: Date Time Temp Pulse Resp B/P (MAP) Pulse Ox O2 Delivery O2 Flow Rate FiO2 08/08/17 15:16 36.9 58 20 127/86 (100) 97 Room Air 08/08/17 12:00 Room Air 08/08/17 11:40 36.7 74 20 113/78 (90) 95 Room Air 08/08/17 08:00 Room Air 08/08/17 07:52 37.0 99 22 115/86 (96) 96 Room Air 08/08/17 05:38 36.7 83 20 127/88 (101) 96 Room Air 08/08/17 04:00 Room Air 08/08/17 00:34 36.9 75 20 130/81 (97) 95 Room Air 08/08/17 00:00 Room Air 08/07/17 20:20 36.7 79 16 124/85 (98) 93 Room Air 08/07/17 20:00 Room Air 08/07/17 19:00 36.2 93 18 138/98 Room Air 08/07/17 17:20 81 20 100/68 95 Nasal Cannula 2.0 Lab Results: Results Past 24 Hours Test 08/07/17 19:00 08/07/17 19:21 08/08/17 00:52 08/08/17 09:00 Range/Units Creatine Kinase MB Ratio 0-3.0 Creatine Kinase MB 2.7 2.2 0.5-3.6 ng/ml Troponin I < 0.015 < 0.015 0-0.045 ng/ml White Blood Count 7.36 4.8-10.8 K/uL Red Blood Count 4.42 4.7-6.1 M/uL Hemoglobin 13.5 14.0-18.0 g/dL Hematocrit 40.9 42-52 % Mean Corpuscular Volume 92.5 80-100 fL Mean Corpuscular Hemoglobin 30.5 25-34 pg Mean Corpuscular Hemoglobin Concent 33.0 32-36 g/dl RDW Standard Deviation 49.1 36.4-46.3 fL RDW Coefficient of Variation 14.4 11.5-14.5 % Platelet Count 243 130-400 K/uL Mean Platelet Volume 8.8 7.4-10.4 fL Prothrombin Time 56.7 9.0-12.0 SECONDS Prothromb Time International Ratio 5.6 0.9-1.1 Sodium Level 139 136-145 mmol/L Potassium Level 3.4 3.5-5.1 mmol/L Chloride Level 107 98-107 mmol/L Carbon Dioxide Level 27 21-32 mmol/L Anion Gap 5.0 3-11 mmol/L Blood Urea Nitrogen 13 7-18 mg/dl Creatinine 1.30 0.60-1.40 mg/dl Est Creatinine Clear Calc Drug Dose 89.1 ml/min Estimated GFR () 69.2 Estimated GFR (Non- 59.7 BUN/Creatinine Ratio 10.0 10-20 Random Glucose 127 70-99 mg/dl Estimated Average Glucose 131 mg/dl Hemoglobin A1c 6.2 4.5-5.6 % Calcium Level 8.1 8.5-10.1 mg/dl Triglycerides Level 211 0-150 mg/dl Cholesterol Level 178 0-200 mg/dl HDL Cholesterol 35 mg/dl LDL Cholesterol, Calculated 101 mg/dl VLDL Cholesterol, Calculated 42 mg/dl Cholesterol/HDL Ratio 5.1
[2017-08-08] MEDS: ARIPIprazole TAB 15 MG TAB PO SCH (20:45)
[2017-08-08] MEDS: CHLORDIAZEPOXIDE 10 MG CAP PO SCH (20:49)
[2017-08-08 23:38] VITALS: BP 114/77; PULSE 76; TEMP 36.6; O2SAT 95
[2017-08-09] VITALS (8 sets, daily range): BP systolic 93–118; BP diastolic 64–87; PULSE 63–79; TEMP 36.4–36.8; O2SAT 95–96
[2017-08-09 08:22] LABS: HEMATOCRIT 40.5 % (42-52); HEMOGLOBIN 13.6 g/dL (14.0-18.0); MEAN CELL VOLUME 92.7 fL (80-100); MEAN CORPUSCULAR HEMOGLOBIN 31.1 pg (25-34); MEAN CORPUSCULAR HGB CONC 33.6 g/dl (32-36); MEAN PLATELET VOLUME 8.6 fL (7.4-10.4); PLATELET COUNT 200 K/uL (130-400); RED CELL DISTRIBUTION WIDTH CV 14.5 % (11.5-14.5); RED CELL DISTRIBUTION WIDTH SD 49.1 fL (36.4-46.3); WHITE BLOOD COUNT 6.18 K/uL (4.8-10.8)
[2017-08-09 08:59] LABS: CALCIUM 8.5 mg/dl (8.5-10.1); CREATININE 1.06 mg/dl (0.60-1.40); PHOSPHORUS 2.3 mg/dl (2.5-4.9); POTASSIUM 3.7 mmol/L (3.5-5.1)
[2017-08-09] MEDS: THIAMINE HCL 100 MG TAB PO SCH (09:09)
[2017-08-09] MEDS: METOPROLOL TARTRATE 50 MG TAB PO SCH ×2 (09:09→20:39)
[2017-08-09] MEDS: CEROVITE ADV FORMULA TAB PO SCH (09:09)
[2017-08-09] MEDS: ESCITALOPRAM OXALATE 20 MG TAB PO SCH (09:09)
[2017-08-09] MEDS: DICYCLOMINE HCL 10 MG CAP PO SCH ×2 (09:09→20:41)
[2017-08-09] MEDS: LACTOBACILLUS ACIDOPHILUS (FLORANEX) TAB PO SCH ×2 (09:09→20:40)
[2017-08-09] MEDS: FUROSEMIDE 40 MG TAB PO SCH (09:10)
[2017-08-09] MEDS: POTASSIUM CHLORIDE 10 MEQ TABCR PO SCH (09:10)
[2017-08-09] MEDS: ASPIRIN 81 MG ECTAB PO SCH (09:11)
[2017-08-09] MEDS: TAMSULOSIN HCL 0.4 MG CAP PO SCH (09:11)
[2017-08-09] MEDS: LEVETIRACETAM 500 MG TAB PO SCH ×2 (09:11→20:40)
[2017-08-09] MEDS: PANTOprazole SOD 40 MG TAB PO SCH ×2 (09:12→20:38)
[2017-08-09] MEDS: OXYCODONE/ACETAMINOPHEN 5-325 TAB PO PRN ×3 (09:14→20:38)
--- NOTE | 2017-08-09 12:13 | PROGRESS NOTE ---
DATE: 08/09/2017 CARDIOLOGY CONSULTATION FOLLOWUP NOTE The patient seen and examined. Chart, medications, telemetry reviewed. SUBJECTIVE: The patient continues to complain predominant left hip pain and leg pain, does admit to a grade 2/3 chest discomfort though without modulation. Notes no radiation. Symptoms were unrelenting. OBJECTIVE: VITAL SIGNS: Heart rate is 69, blood pressure is 115/79. NECK: Thick. There is no distinct jugular venous distention. LUNGS: Clear with mildly diminished breath sounds. CARDIOVASCULAR: Irregularly irregular. There is no S3 gallop. ABDOMEN: Soft, obese, nontender. EXTREMITIES: Without cyanosis or clubbing. There is no significant edema. LABORATORY DATA: White cell count 6.1, hemoglobin is 13.6. Sodium is 141, potassium is 3.7, chloride is 107, bicarbonate is 27, BUN is 12, and creatinine is 1.06. Troponin is less than 0.015 on serial testing. IMAGING DATA: EKG this morning reveals atrial fibrillation with controlled ventricular response rate. No ST-segment abnormalities of significance. No Q-waves. Echocardiogram done yesterday demonstrates preserved LV systolic function with moderate left ventricular hypertrophy. No distinct wall motion abnormalities or valvular abnormalities on a technically limited study. IMPRESSION: A 61-year-old male with atypical chest discomfort without signs or symptoms of ischemia by EKG and enzymatic criteria despite greater than 48 hours persistence chest discomfort, symptoms appear noncardiac in nature. Does carry an underlying history of chronic atrial fibrillation; obstructive sleep apnea, not on treatment; hypertension, controlled. RECOMMENDATIONS: Continue all current therapies. No further cardiac testing warranted at this time. Encouraged management of underlying sleep apnea with patient MTDD
--- NOTE | 2017-08-09 14:02 | Progress Note ---
Internal Med Progress Note Date of Service: Aug 09, 2017. Provider Documentation: SUBJECTIVE: The patient was seen and examined Non specific chest pain Also complains of left groin/hip pain Denies any associated symptoms Denies any chest pain Has sleep Apnea and can not tolerate CPAP or BIPAP Take Oxygen at night OBJECTIVE: Vital Signs-as noted below Exam: General-no distress at rest Eyes-normal ENT-normal Neck-supple Lungs-Clear to auscultate bilaterally Heart-Irregular,no murmur Abdomen-Benign,no masses,bowel sound present Extremities-no edema Examination of the left hip -mild pain on movement Neuro-AAOx3 Lab data as noted below. ASSESSMENT & PLAN: CHEST PAIN - admit to tele - patient presenting with midsternal chest pain that radiated to left side of the chest with associated left arm numbness, pain improved with SL nitro x 2 and nitro paste - 06/2016 - nuclear stress test showed small defect at the apical and anterior apex - 08/2016 - dobutamine stress echo negative for ischemic - initial troponin negative, EKG shows T-wave flattening in the inferior and lateral leads - continue to cycle cardiac enzymes, chest resting echo-unremarkable -CTA negative for dissection and no DVT - continue ASA and beta tarun, check lipids in AM-noted - cardio consult -appreciate input -Likely secondary to Costochondritis -No change oin Cardiac medications LEFT HIP PAIN-Secondary to OA - XR negative for acute findings - has an appointment with ortho as an outpatient - PT/OT evaluation -hannah start small dose of Percocet ATRIAL FIBRILLATION - rate mildly elevated on arrival, now improved - rate controlled on metoprolol, will continue - on Coumadin, INR 7.3; no signs of bleeding, hold Coumadin tonight, monitor INR -rate is controlled monitor INR Has sleep Apnea and can not tolerate CPAP or BIPAP Take Oxygen at night HX ASCENDING AORTIC ANEURYSM - 4cm per CT chest 06/2016; not mentioned on CTA chest today -no symptoms CHRONIC DIASTOLIC CHF - appears euvolemic and CXR -negative - continue Lasix HX CVA - continue statin BIPOLAR - continue home Meds SEIZURE DISORDER - continue Keppra DVT PROPHYLAXIS - on Coumadin, supra therapeutic INR DISPO - The patient will be placed as observation status for now until further work up is complete. Vital Signs: Date Time Temp Pulse Resp B/P (MAP) Pulse Ox O2 Delivery O2 Flow Rate FiO2 08/09/17 12:01 Room Air 08/09/17 11:53 36.7 73 16 115/86 (96) 95 08/09/17 08:00 Room Air 08/09/17 06:58 36.6 69 18 115/79 (91) 96 Room Air 08/09/17 04:00 36.7 63 18 118/85 (96) 96 Room Air 08/09/17 04:00 Room Air 08/09/17 00:00 Room Air 08/08/17 23:38 36.6 76 16 114/77 (89) 95 Room Air 08/08/17 20:00 Room Air 08/08/17 16:00 Room Air 08/08/17 15:16 36.9 58 20 127/86 (100) 97 Room Air Lab Results: Results Past 24 Hours Test 08/09/17 07:56 Range/Units White Blood Count 6.18 4.8-10.8 K/uL Red Blood Count 4.37 4.7-6.1 M/uL Hemoglobin 13.6 14.0-18.0 g/dL Hematocrit 40.5 42-52 % Mean Corpuscular Volume 92.7 80-100 fL Mean Corpuscular Hemoglobin 31.1 25-34 pg Mean Corpuscular Hemoglobin Concent 33.6 32-36 g/dl RDW Standard Deviation 49.1 36.4-46.3 fL RDW Coefficient of Variation 14.5 11.5-14.5 % Platelet Count 200 130-400 K/uL Mean Platelet Volume 8.6 7.4-10.4 fL Sodium Level 141 136-145 mmol/L Potassium Level 3.7 3.5-5.1 mmol/L Chloride Level 107 98-107 mmol/L Carbon Dioxide Level 27 21-32 mmol/L Anion Gap 7.0 3-11 mmol/L Blood Urea Nitrogen 12 7-18 mg/dl Creatinine 1.06 0.60-1.40 mg/dl Est Creatinine Clear Calc Drug Dose 109.3 ml/min Estimated GFR () 88.6 Estimated GFR (Non- 76.4 BUN/Creatinine Ratio 11.5 10-20 Random Glucose 86 70-99 mg/dl Calcium Level 8.5 8.5-10.1 mg/dl Phosphorus Level 2.3 2.5-4.9 mg/dl Magnesium Level 1.9 1.8-2.4 mg/dl
[2017-08-09] MEDS: CHLORDIAZEPOXIDE 10 MG CAP PO SCH (20:38)
[2017-08-09] MEDS: ARIPIprazole TAB 15 MG TAB PO SCH (20:40)
[2017-08-10] VITALS (10 sets, daily range): BP systolic 92–122; BP diastolic 59–81; PULSE 63–86; TEMP 36.6–37.1; O2SAT 90–95
[2017-08-10] MEDS: OXYCODONE/ACETAMINOPHEN 5-325 TAB PO PRN ×3 (06:01→22:43)
[2017-08-10 06:35] LABS: BASO % 0.3 %; BASO ABS # 0.02 K/uL (0-0.2); EOS % 4.5 %; EOS ABS # 0.26 K/uL (0-0.5); HEMOGLOBIN 13.1 g/dL (14.0-18.0); IG# 0.02 K/uL (0.00-0.02); LYMPH % 26.7 %; LYMPH ABS # 1.55 K/uL (1.2-3.4); MEAN CELL VOLUME 93.3 fL (80-100); MEAN CORPUSCULAR HEMOGLOBIN 31.3 pg (25-34); MEAN CORPUSCULAR HGB CONC 33.6 g/dl (32-36); MEAN PLATELET VOLUME 8.6 fL (7.4-10.4); MONO % 13.1 %; MONO ABS # 0.76 K/uL (0.11-0.59); NEUT % 55.1 %; PLATELET COUNT 199 K/uL (130-400); RED CELL DISTRIBUTION WIDTH CV 14.5 % (11.5-14.5); WHITE BLOOD COUNT 5.81 K/uL (4.8-10.8)
[2017-08-10 06:43] LABS: INR 3.4 (0.9-1.1)
[2017-08-10 07:13] LABS: ALBUMIN 2.6 gm/dl (3.4-5.0); CALCIUM 8.1 mg/dl (8.5-10.1); CREATININE 1.24 mg/dl (0.60-1.40); POTASSIUM 3.4 mmol/L (3.5-5.1)
[2017-08-10 07:15] LABS: TOTAL PROTEIN 6.2 gm/dl (6.4-8.2)
[2017-08-10] MEDS: METOPROLOL TARTRATE 50 MG TAB PO SCH ×3 (09:00→20:49)
[2017-08-10] MEDS: ESCITALOPRAM OXALATE 20 MG TAB PO SCH (09:13)
[2017-08-10] MEDS: LACTOBACILLUS ACIDOPHILUS (FLORANEX) TAB PO SCH ×2 (09:13→20:48)
[2017-08-10] MEDS: THIAMINE HCL 100 MG TAB PO SCH (09:13)
[2017-08-10] MEDS: POTASSIUM CHLORIDE 10 MEQ TABCR PO SCH (09:13)
[2017-08-10] MEDS: CEROVITE ADV FORMULA TAB PO SCH (09:13)
[2017-08-10] MEDS: DICYCLOMINE HCL 10 MG CAP PO SCH ×2 (09:13→20:47)
[2017-08-10] MEDS: ASPIRIN 81 MG ECTAB PO SCH (09:14)
[2017-08-10] MEDS: FUROSEMIDE 40 MG TAB PO SCH ×2 (09:14→10:00)
[2017-08-10] MEDS: TAMSULOSIN HCL 0.4 MG CAP PO SCH (09:14)
[2017-08-10] MEDS: PANTOprazole SOD 40 MG TAB PO SCH ×2 (09:15→20:49)
[2017-08-10] MEDS: LEVETIRACETAM 500 MG TAB PO SCH ×2 (09:15→20:48)
[2017-08-10] MEDS ORDERED: POTASSIUM CHLORIDE 10 MEQ TABCR PO STA (13:44)
--- NOTE | 2017-08-10 13:48 | Progress Note ---
Internal Med Progress Note Date of Service: Aug 10, 2017. Provider Documentation: SUBJECTIVE: The patient was seen and examined Non specific chest pain Also complains of left groin/hip pain Denies any associated symptoms Has sleep Apnea and can not tolerate CPAP or BIPAP Take Oxygen at night Still complains of left sided CP and left groin pain OBJECTIVE: Vital Signs-as noted below Exam: General-no distress at rest Eyes-normal ENT-normal Neck-supple Lungs-Clear to auscultate bilaterally Localized tenderness over precordium Heart-Irregular,no murmur Abdomen-Benign,no masses,bowel sound present Extremities-no edema Examination of the left hip -mild pain on movement and no restriction of Movement Neuro-AAOx3 Lab data as noted below. ASSESSMENT & PLAN: CHEST PAIN -Non Cardiac - admit to tele - patient presenting with midsternal chest pain that radiated to left side of the chest with associated left arm numbness, pain improved with SL nitro x 2 and nitro paste - 06/2016 - nuclear stress test showed small defect at the apical and anterior apex - 08/2016 - dobutamine stress echo negative for ischemic - initial troponin negative, EKG shows T-wave flattening in the inferior and lateral leads - continue to cycle cardiac enzymes, chest resting echo-unremarkable -CTA negative for dissection and no DVT - continue ASA and beta tarun, check lipids in AM-noted - cardio consult -appreciate input -Likely secondary to Costochondritis -No change on Cardiac medications LEFT HIP PAIN-Secondary to OA - XR negative for acute findings - has an appointment with ortho as an outpatient -will start small dose of Percocet -Continue PT/OT ATRIAL FIBRILLATION - rate mildly elevated on arrival, now improved - rate controlled on metoprolol, will continue - on Coumadin, INR 7.3; no signs of bleeding, hold Coumadin tonight, monitor INR -rate is controlled -monitor INR -start Coumadin from tomorrow Has sleep Apnea and can not tolerate CPAP or BIPAP Take Oxygen at night HX ASCENDING AORTIC ANEURYSM - 4cm per CT chest 06/2016; not mentioned on CTA chest today -no symptoms CHRONIC DIASTOLIC CHF - appears euvolemic and CXR -negative - continue Lasix HX CVA - continue statin BIPOLAR - continue home Meds SEIZURE DISORDER - continue Keppra DVT PROPHYLAXIS - on Coumadin, supra therapeutic INR DISPO Likely discharge tomorrow Vital Signs: Date Time Temp Pulse Resp B/P (MAP) Pulse Ox O2 Delivery O2 Flow Rate FiO2 08/10/17 11:34 36.6 75 16 92/59 (70) 95 Room Air 08/10/17 09:15 86 93/62 (72) 08/10/17 08:00 94 Room Air 2.0 08/10/17 06:55 36.7 63 16 110/77 (88) 94 Room Air 08/10/17 04:34 37.0 68 18 107/77 (87) 94 Room Air 08/10/17 04:00 Room Air 08/10/17 00:00 Room Air 08/09/17 22:42 36.4 71 21 116/87 (97) 95 Room Air 08/09/17 20:00 96 Room Air 08/09/17 18:57 36.7 79 18 111/76 (88) 96 Room Air 08/09/17 16:00 95 Room Air 08/09/17 14:41 36.8 74 18 93/64 (74) 95 Room Air Lab Results: Results Past 24 Hours Test 08/10/17 06:01 Range/Units White Blood Count 5.81 4.8-10.8 K/uL Red Blood Count 4.18 4.7-6.1 M/uL Hemoglobin 13.1 14.0-18.0 g/dL Hematocrit 39.0 42-52 % Mean Corpuscular Volume 93.3 80-100 fL Mean Corpuscular Hemoglobin 31.3 25-34 pg Mean Corpuscular Hemoglobin Concent 33.6 32-36 g/dl Platelet Count 199 130-400 K/uL Mean Platelet Volume 8.6 7.4-10.4 fL Neutrophils (%) (Auto) 55.1 % Lymphocytes (%) (Auto) 26.7 % Monocytes (%) (Auto) 13.1 % Eosinophils (%) (Auto) 4.5 % Basophils (%) (Auto) 0.3 % Neutrophils # (Auto) 3.20 1.4-6.5 K/uL Lymphocytes # (Auto) 1.55 1.2-3.4 K/uL Monocytes # (Auto) 0.76 0.11-0.59 K/uL Eosinophils # (Auto) 0.26 0-0.5 K/uL Basophils # (Auto) 0.02 0-0.2 K/uL RDW Standard Deviation 49.0 36.4-46.3 fL RDW Coefficient of Variation 14.5 11.5-14.5 % Immature Granulocyte % (Auto) 0.3 % Immature Granulocyte # (Auto) 0.02 0.00-0.02 K/uL Prothrombin Time 34.8 9.0-12.0 SECONDS Prothromb Time International Ratio 3.4 0.9-1.1 Sodium Level 139 136-145 mmol/L Potassium Level 3.4 3.5-5.1 mmol/L Chloride Level 105 98-107 mmol/L Carbon Dioxide Level 28 21-32 mmol/L Anion Gap 6.0 3-11 mmol/L Blood Urea Nitrogen 14 7-18 mg/dl Creatinine 1.24 0.60-1.40 mg/dl Est Creatinine Clear Calc Drug Dose 93.1 ml/min Estimated GFR () 73.3 Estimated GFR (Non- 63.2 BUN/Creatinine Ratio 11.2 10-20 Random Glucose 78 70-99 mg/dl Calcium Level 8.1 8.5-10.1 mg/dl Total Bilirubin 0.6 0.2-1 mg/dl Aspartate Amino Transf (AST/SGOT) 30 15-37 U/L Alanine Aminotransferase (ALT/SGPT) 30 12-78 U/L Alkaline Phosphatase 82 45-117 U/L Total Protein 6.2 6.4-8.2 gm/dl Albumin 2.6 3.4-5.0 gm/dl Globulin 3.6 2.5-4.0 gm/dl Albumin/Globulin Ratio 0.7 0.9-2
[2017-08-10] MEDS: ARIPIprazole TAB 15 MG TAB PO SCH (20:47)
[2017-08-10] MEDS: CHLORDIAZEPOXIDE 10 MG CAP PO SCH (20:50)
[2017-08-11 04:04] VITALS: BP 121/85; PULSE 73; TEMP 36.4; O2SAT 94
[2017-08-11 06:35] VITALS: BP 120/85; PULSE 66; TEMP 36.5; O2SAT 94
[2017-08-11 08:01] LABS: INR 2.1 (0.9-1.1)
[2017-08-11 08:04] VITALS: O2SAT 94
[2017-08-11 08:15] LABS: CALCIUM 8.2 mg/dl (8.5-10.1); CREATININE 1.17 mg/dl (0.60-1.40); POTASSIUM 3.9 mmol/L (3.5-5.1)
[2017-08-11 08:26] LABS: HEMOGLOBIN 13.4 g/dL (14.0-18.0); MEAN CELL VOLUME 92.6 fL (80-100); MEAN CORPUSCULAR HEMOGLOBIN 31.8 pg (25-34); MEAN CORPUSCULAR HGB CONC 34.4 g/dl (32-36); MEAN PLATELET VOLUME 8.7 fL (7.4-10.4); PLATELET COUNT 210 K/uL (130-400); RED CELL DISTRIBUTION WIDTH CV 14.6 % (11.5-14.5); RED CELL DISTRIBUTION WIDTH SD 48.4 fL (36.4-46.3); WHITE BLOOD COUNT 6.63 K/uL (4.8-10.8)
[2017-08-11] MEDS: OXYCODONE/ACETAMINOPHEN 5-325 TAB PO PRN ×2 (08:26→12:31)
[2017-08-11] MEDS: FUROSEMIDE 40 MG TAB PO SCH (08:39)
[2017-08-11] MEDS: POTASSIUM CHLORIDE 10 MEQ TABCR PO SCH (08:40)
[2017-08-11] MEDS: TAMSULOSIN HCL 0.4 MG CAP PO SCH (08:40)
[2017-08-11] MEDS: DICYCLOMINE HCL 10 MG CAP PO SCH (08:41)
[2017-08-11] MEDS: PANTOprazole SOD 40 MG TAB PO SCH (08:41)
[2017-08-11] MEDS: ASPIRIN 81 MG ECTAB PO SCH (08:41)
[2017-08-11] MEDS: ESCITALOPRAM OXALATE 20 MG TAB PO SCH (08:41)
[2017-08-11] MEDS: METOPROLOL TARTRATE 50 MG TAB PO SCH (08:42)
[2017-08-11] MEDS: CEROVITE ADV FORMULA TAB PO SCH (08:43)
[2017-08-11] MEDS: LACTOBACILLUS ACIDOPHILUS (FLORANEX) TAB PO SCH (08:43)
[2017-08-11] MEDS: LEVETIRACETAM 500 MG TAB PO SCH (08:43)
[2017-08-11] MEDS: THIAMINE HCL 100 MG TAB PO SCH (08:43)
--- NOTE | 2017-08-11 10:20 | Progress Note ---
Internal Med Progress Note Date of Service: Aug 11, 2017. Provider Documentation: SUBJECTIVE: The patient was seen and examined Has sleep Apnea and can not tolerate CPAP or BIPAP Take Oxygen at night Still complains of left sided CP and left groin pain -improved a lot Requiring Percocet to control the pain OBJECTIVE: Vital Signs-as noted below Exam: General-no distress at rest Obese Eyes-normal ENT-normal Neck-supple Lungs-Clear to auscultate bilaterally Localized tenderness over precordium Heart-Irregular,no murmur Abdomen-Benign,no masses,bowel sound present Extremities-no edema Examination of the left hip -mild pain on movement and no restriction of Movement Neuro-AAOx3 Lab data as noted below. ASSESSMENT & PLAN: CHEST PAIN -Non Cardiac - admit to tele - patient presenting with midsternal chest pain that radiated to left side of the chest with associated left arm numbness, pain improved with SL nitro x 2 and nitro paste - 06/2016 - nuclear stress test showed small defect at the apical and anterior apex - 08/2016 - dobutamine stress echo negative for ischemic - initial troponin negative, EKG shows T-wave flattening in the inferior and lateral leads - continue to cycle cardiac enzymes, chest resting echo-unremarkable -CTA negative for dissection and no DVT - continue ASA and beta tarun, check lipids in AM-noted - cardio consult -appreciate input -Likely secondary to Costochondritis -No change on Cardiac medications -denies any more chest pain this morning -ready to be discharged LEFT HIP PAIN-Secondary to OA - XR negative for acute findings - has an appointment with ortho as an outpatient -will start small dose of Percocet -Continue PT/OT -doing better ATRIAL FIBRILLATION - rate mildly elevated on arrival, now improved - rate controlled on metoprolol, will continue - on Coumadin, INR 7.3; no signs of bleeding, hold Coumadin tonight, monitor INR -rate is controlled -monitor INR-2/1 0n 08/11/17 -start Coumadin from todays Has sleep Apnea and can not tolerate CPAP or BIPAP Take Oxygen at night HX ASCENDING AORTIC ANEURYSM - 4cm per CT chest 06/2016; not mentioned on CTA chest today -no symptoms CHRONIC DIASTOLIC CHF - appears euvolemic and CXR -negative - continue Lasix HX CVA - continue statin BIPOLAR - continue home Meds SEIZURE DISORDER - continue Keppra DVT PROPHYLAXIS - on Coumadin, supra therapeutic INR DISPO Discharge home today Has appointment with PCP on Thursday -advised to keep that appointment And Check INR Vital Signs: Date Time Temp Pulse Resp B/P (MAP) Pulse Ox O2 Delivery O2 Flow Rate FiO2 08/11/17 08:04 94 Room Air 08/11/17 06:35 36.5 66 22 120/85 (97) 94 Room Air 08/11/17 04:04 36.4 73 16 121/85 (97) 94 Room Air 08/11/17 04:00 Room Air 08/11/17 00:00 Room Air 08/10/17 23:18 36.6 70 21 112/81 (91) 93 Room Air 08/10/17 20:00 92 Room Air 08/10/17 19:09 37.1 71 20 122/81 (95) 92 Room Air 08/10/17 16:00 90 Room Air 08/10/17 14:52 36.6 77 16 101/73 (82) 90 Room Air 08/10/17 12:00 Room Air 08/10/17 11:34 36.6 75 16 92/59 (70) 95 Room Air Lab Results: Results Past 24 Hours Test 08/11/17 07:35 Range/Units White Blood Count 6.63 4.8-10.8 K/uL Red Blood Count 4.21 4.7-6.1 M/uL Hemoglobin 13.4 14.0-18.0 g/dL Hematocrit 39.0 42-52 % Mean Corpuscular Volume 92.6 80-100 fL Mean Corpuscular Hemoglobin 31.8 25-34 pg Mean Corpuscular Hemoglobin Concent 34.4 32-36 g/dl RDW Standard Deviation 48.4 36.4-46.3 fL RDW Coefficient of Variation 14.6 11.5-14.5 % Platelet Count 210 130-400 K/uL Mean Platelet Volume 8.7 7.4-10.4 fL Prothrombin Time 22.0 9.0-12.0 SECONDS Prothromb Time International Ratio 2.1 0.9-1.1 Sodium Level 139 136-145 mmol/L Potassium Level 3.9 3.5-5.1 mmol/L Chloride Level 106 98-107 mmol/L Carbon Dioxide Level 24 21-32 mmol/L Anion Gap 9.0 3-11 mmol/L Blood Urea Nitrogen 14 7-18 mg/dl Creatinine 1.17 0.60-1.40 mg/dl Est Creatinine Clear Calc Drug Dose 98.7 ml/min Estimated GFR () 78.6 Estimated GFR (Non- 67.8 BUN/Creatinine Ratio 11.9 10-20 Random Glucose 80 70-99 mg/dl Calcium Level 8.2 8.5-10.1 mg/dl
[2017-08-11] MEDS ORDERED: OXYC-57 PO (11:14)
--- NOTE | 2017-08-11 11:16 | Discharge Instructions ---
Discharge Instructions Date of Service Aug 11, 2017. Admission Reason for Admission: chest pain Discharge Discharge Diagnosis / Problem: Chest pain-No ACS and Noncardiac,Left Hip pain- OA no fracture Discharge Goals Goal(s): Prevent Disease Progression Activity Recommendations Activity Limitations: resume your previous activity . Instructions / Follow-Up Instructions / Follow-Up Please keep appointment with your PCP on Thursday.Have INR checked .Strongly recommend management of Sleep Apnea Current Hospital Diet Patient's current hospital diet: AHA Diet (Heart Healthy) Discharge Diet Recommended Diet: AHA Diet (Heart Healthy) Pending Studies Studies pending at discharge: no Laboratory Results Hemoglobin A1c Test 08/08/17 09:00 Range/Units Estimated Average Glucose 131 mg/dl Hemoglobin A1c 6.2 H 4.5-5.6 % Lipid Panel Test 08/08/17 09:00 Range/Units Triglycerides Level 211 H 0-150 mg/dl Cholesterol Level 178 0-200 mg/dl HDL Cholesterol 35 mg/dl Cholesterol/HDL Ratio 5.1 LDL Cholesterol, Calculated 101 mg/dl Medical Emergencies . Who to Call and When: Medical Emergencies: If at any time you feel your situation is an emergency, please call 911 immediately. . Non-Emergent Contact Non-Emergency issues call your: Primary Care Provider . Past History Medical & Surgical History: (1) BPH (benign prostatic hyperplasia) (2) CAD (coronary artery disease) (3) Diastolic CHF (4) HTN (hypertension) (5) Hepatitis C (6) CVA (cerebral vascular accident) (7) Atrial fibrillation (8) Bipolar 1 disorder (9) Seizure disorder (10) Alcohol abuse . "Provider Documentation" section prepared by Mal Juárez. . VTE Core Measure Inpt VTE Proph given/why not?: Warfarin (Coumadin)
--- NOTE | 2017-08-11 11:22 | Discharge Summary ---
Discharge Summary Date of Service Aug 11, 2017. Discharge Summary Admission Date: Aug 07, 2017 at 15:34 Discharge Date: Aug 11, 2017 Discharge Disposition: Home Principal Diagnosis: Chest pain-No ACS and Noncardiac,Left Hip pain-OA no fracture Secondary Diagnoses/Problems: Please seee H&P and Hospital Progress note Consultations: Cardiology Medication Reconciliation New Medications: Oxycodone/Acetaminophen 5MG/325MG (Percocet 5MG/325MG) Tab 1 TAB PO Q4H PRN for Pain for 10 Days, #30 TAB PAIN Continued Medications: Aripiprazole (Abilify) 15 Mg Tab 15 MG PO HS Aspirin (Aspirin Ec) 81 Mg Tab 81 MG PO DAILY Chlordiazepoxide (Librium) 10 Mg Cap 10 MG PO HS Clobetasol Propionate (Temovate) 0.05 % Oin 1 APPLN TOP DAILY PRN for RASH Cromolyn Sodium (Ophth) (Opticrom Oph) 4 % Elizabeth 1 DROPS OPB QID Dicyclomine Hcl (Dicyclomine Hcl) 10 Mg Cap 10 MG PO BID Escitalopram Oxalate (Lexapro) 20 Mg Tab 20 MG PO DAILY Folic Acid (Folvite) 1 Mg Tab 1 MG PO DAILY Furosemide (Lasix) 40 Mg Tab 40 MG PO DAILY Home O2 Therapy (Oxygen) Gas 2 LITERS NA UD AT BEDTIME Ipratropium-Albuterol (Combivent Respimat) 1 Aer Aer 1 PUFFS INH Q4 PRN for Wheezing Ketorolac Tromethamine (Ketorolac Tromethamine) 0.5 % Elizabeth 1 DROP OPB DAILY Lactobacillus Acidophilus (Lactinex) Tab 1 TAB PO BID Levetiracetam (Keppra) 1,000 Mg Tab 1000 MG PO BID Levocetirizine Dihydrochloride (Levocetirizine Dihydrochl) 5 Mg Tab 5 MG PO DAILY Melatonin (Melatonin) 3 Mg Tab 3 MG PO HS PRN for Insomnia Metoprolol Tartrate (Lopressor) (Lopressor) 50 Mg Tab 75 MG PO BID 1 1/2 TABLET BID Multiple Vitamins W/ Minerals (Multi Complete) 1 Cap Cap 1 CAP PO DAILY Nitroglycerin (Nitrostat) 0.4 Mg Tab 0.4 MG UT PRN PRN for Chest Pain Omeprazole (Prilosec) 20 Mg Capcr 20 MG PO BID Polyvinyl Alcohol-Povidone (Op (Artificial Tears) 1 Elizabeth Elizabeth 1 DROP OPB DAILY PRN for DRYNESS Potassium Chloride (Micro-K Ext Rel) 10 Meq Capcr 20 MEQ PO DAILY TWO 10 MEQ TABLETS PER DOSE Tamsulosin Hcl (Flomax) 0.4 Mg Cap 0.4 MG PO DAILY Thiamine Hcl (Vitamin B-1) 100 Mg Tab 100 MG PO DAILY Warfarin Sod (Coumadin) 2.5 Mg Tab 2.5 MG PO WK, TAB Thursday Warfarin Sodium (Coumadin) 5 Mg Tab 5 MG PO 6XWK, TAB everyday except Thursday Zolpidem Tartrate (Ambien) 5 Mg Tab 5 MG PO HS Admission Information HPI (per Admitting provider): 61 year old male who presents to the ED with chest pain. Patient reports he was getting ready for a doctor's appointment when he developed chest pain. Patient describes the pain as located midsternally with radiation over to the left side. He describes it as an ache. He rated the pain #6/10. Pain was constant. He denies any radiation of the pain into the neck, jaw, or arm. He did report his left arm felt numb and it was shaking. He had mild diaphoresis. Denies shortness of breath, nausea, lightheadedness, dizziness, or syncope. He went to his PCP who referred him to the ED for further evaluation. EMS was called and patient received 2 SL nitro. Nitro paste was then applied in the ED. Patient reports discomfort has significantly improved. He reports he developed left hip a few days ago. Pain radiates down the front and back of the leg. He denies any injury or trauma. No recent illnesses, fevers, or chills. No abdominal pain, vomiting, or diarrhea. He denies cough and sputum production. He denies urinary symptoms. In the ED, initial troponin is negative and EKG is without acute ST changes. He is hemodynamically stable. Past Medical/Surgical History Medical Problems: (1) Alcohol abuse Status: Chronic (2) Ascending aortic aneurysm Permanent Comment: 06/2016 - 4cm per CT chest Status: Chronic (3) Atrial fibrillation Status: Chronic (4) Bipolar 1 disorder Status: Chronic (5) BPH (benign prostatic hyperplasia) Status: Chronic (6) CAD (coronary artery disease) Permanent Comment: presumed from abnormal nuclear stress test 06/2016 - small defect at the apical and anterior apex Status: Chronic (7) CVA (cerebral vascular accident) Status: Chronic (8) Diastolic CHF Permanent Comment: echo 04/2017 suggests diastolic dysfunction Status: Chronic (9) Hepatitis C Status: Chronic (10) HTN (hypertension) Status: Chronic (11) Seizure disorder Status: Chronic Social History Smoking Status: Former Smoker Alcohol Use: former heavy ETOH use Immunizations History of Influenza Vaccine: Yes Influenza Vaccine Date: Apr 26, 2017 Allergies Uncoded Allergies: SEASONAL (Allergy, Unknown, ., 08/07/17) Home Medications Scheduled Aripiprazole (Abilify), 15 MG PO HS Aspirin (Aspirin Ec), 81 MG PO DAILY Chlordiazepoxide (Librium), 10 MG PO HS Cromolyn Sodium (Ophth) (Opticrom Oph), 1 DROPS OPB QID Dicyclomine Hcl (Dicyclomine Hcl), 10 MG PO BID Escitalopram Oxalate (Lexapro), 20 MG PO DAILY Folic Acid (Folvite), 1 MG PO DAILY Furosemide (Lasix), 40 MG PO DAILY Home O2 Therapy (Oxygen), 2 LITERS NA UD Ketorolac Tromethamine (Ketorolac Tromethamine), 1 DROP OPB DAILY Lactobacillus Acidophilus (Lactinex), 1 TAB PO BID Levetiracetam (Keppra), 1,000 MG PO BID Levocetirizine Dihydrochloride (Levocetirizine Dihydrochl), 5 MG PO DAILY Metoprolol Tartrate (Lopressor) (Lopressor), 75 MG PO BID Multiple Vitamins W/ Minerals (Multi Complete), 1 CAP PO DAILY Omeprazole (Prilosec), 20 MG PO BID Potassium Chloride (Micro-K Ext Rel), 20 MEQ PO DAILY Tamsulosin Hcl (Flomax), 0.4 MG PO DAILY Thiamine Hcl (Vitamin B-1), 100 MG PO DAILY Warfarin Sod (Coumadin), 2.5 MG PO WK Warfarin Sodium (Coumadin), 5 MG PO 6XWK Zolpidem Tartrate (Ambien), 5 MG PO HS Scheduled PRN Clobetasol Propionate (Temovate), 1 APPLN TOP DAILY PRN for RASH Ipratropium-Albuterol (Combivent Respimat), 1 PUFFS INH Q4 PRN for Wheezing Melatonin (Melatonin), 3 MG PO HS PRN for Insomnia Nitroglycerin (Nitrostat), 0.4 MG UT PRN PRN for Chest Pain Polyvinyl Alcohol-Povidone (Op (Artificial Tears), 1 DROP OPB DAILY PRN for DRYNESS Review of Systems ROS per HPI, all other systems reviewed and negative Physical Ex - H&P Physical Exam Vital Signs Date Time Temp Pulse Resp B/P (MAP) Pulse Ox O2 Delivery O2 Flow Rate FiO2 08/07/17 17:20 81 20 100/68 95 Nasal Cannula 2.0 08/07/17 16:20 80 18 113/80 95 Nasal Cannula 2.0 08/07/17 15:42 78 18 107/69 98 Room Air 08/07/17 14:46 80 20 115/88 96 Nasal Cannula 2.0 08/07/17 14:25 85 17 117/81 98 Room Air 08/07/17 14:02 87 18 108/81 97 Nasal Cannula 2.0 08/07/17 13:41 96 Nasal Cannula 2.0 08/07/17 13:02 100 08/07/17 12:50 36.6 101 20 110/70 93 Room Air 08/07/17 12:50 93 Room Air General Appearance: WD/WN, no apparent distress Head: normocephalic, atraumatic Eyes: normal inspection, EOMI, sclerae normal ENT: hearing grossly normal, + pertinent finding (mucous membranes moist) Neck: supple, no JVD, trachea midline Respiratory/Chest: no respiratory distress, + decreased breath sounds (BL bases ) Cardiovascular: regular rate, rhythm, normal peripheral pulses, + pertinent finding (trace edema BLLE) Abdomen/GI: normal bowel sounds, non tender, soft, no organomegaly Extremities/Musculoskelatal: no calf tenderness, normal capillary refill, + pertinent finding (tenderness with palpation over the left hip) Neurologic/Psych: no motor/sensory deficits, alert, normal mood/affect, oriented x 3 Skin: normal color, warm/dry Diagnostics - H&P Diagnostics Laboratory Results Results Past 24 Hours Test 08/07/17 13:15 08/07/17 13:19 Range/Units White Blood Count 6.24 4.8-10.8 K/uL Red Blood Count 4.18 4.7-6.1 M/uL Hemoglobin 13.1 14.0-18.0 g/dL Hematocrit 38.6 42-52 % Mean Corpuscular Volume 92.3 80-100 fL Mean Corpuscular Hemoglobin 31.3 25-34 pg Mean Corpuscular Hemoglobin Concent 33.9 32-36 g/dl Platelet Count 236 130-400 K/uL Mean Platelet Volume 8.8 7.4-10.4 fL Neutrophils (%) (Auto) 64.3 % Lymphocytes (%) (Auto) 25.0 % Monocytes (%) (Auto) 8.8 % Eosinophils (%) (Auto) 1.4 % Basophils (%) (Auto) 0.3 % Neutrophils # (Auto) 4.01 1.4-6.5 K/uL Lymphocytes # (Auto) 1.56 1.2-3.4 K/uL Monocytes # (Auto) 0.55 0.11-0.59 K/uL Eosinophils # (Auto) 0.09 0-0.5 K/uL Basophils # (Auto) 0.02 0-0.2 K/uL RDW Standard Deviation 49.7 36.4-46.3 fL RDW Coefficient of Variation 14.7 11.5-14.5 % Immature Granulocyte % (Auto) 0.2 % Immature Granulocyte # (Auto) 0.01 0.00-0.02 K/uL Prothrombin Time 74.1 9.0-12.0 SECONDS Prothromb Time International Ratio 7.3 0.9-1.1 Activated Partial Thromboplast Time 58.5 21.0-31.0 SECONDS Partial Thromboplastin Ratio 2.3 Sodium Level 142 136-145 mmol/L Potassium Level 3.6 3.5-5.1 mmol/L Chloride Level 108 98-107 mmol/L Carbon Dioxide Level 25 21-32 mmol/L Anion Gap 9.0 13.0 16-25 mmol/L Blood Urea Nitrogen 14 7-18 mg/dl Creatinine 1.21 0.60-1.40 mg/dl Est Creatinine Clear Calc Drug Dose 96.7 ml/min Estimated GFR () 75.5 Estimated GFR (Non- 65.1 BUN/Creatinine Ratio 11.9 10-20 Random Glucose 99 70-99 mg/dl Calcium Level 8.3 8.5-10.1 mg/dl Bedside Hemoglobin 12.9 14.0-18.0 g/dl Bedside Hematocrit 38 42-52 % Bedside D-Dimer > 450 0-450 ng/mlFEU Bedside Sodium 140 135-144 mEq/L Bedside Potassium 4.6 3.3-5.0 mEq/L Bedside Chloride 104 101-112 mEq/L Bedside Total CO2 28 24-31 mEq/l Bedside Blood Urea Nitrogen 17 7-18 mg/dl Bedside Creatinine 1.2 0.6-1.3 mg/dl Bedside Glucose (other) 102 70-99 mg/dl Bedside Ionized Calcium (Alexey) 1.12 1.12-1.32 mmol/l Bedside Troponin I < 0.030 0-0.045 ng/ml Diagnostic Radiology CTA CHEST IMPRESSION: 1. No evidence of thoracic aortic aneurysm or dissection 2. No evidence of acute pulmonary embolism however the examination is significantly limited due to respiratory motion artifact 3. Borderline enlarged left hilar lymph nodes 4. No evidence of focal pulmonary consolidation CT ABD/PELVIS IMPRESSION: 1. Streak and motion compromised examination. 2. Mild retroperitoneal lymphadenopathy is nonspecific and could be on a reactive or neoplastic basis. Clinical correlation will be essential. 3. There is moderate to advanced colonic diverticulosis without CT evidence of acute epiglottis. 4. Hepatic steatosis. 5. There is a mild and age indeterminant superior end plate compression deformity of L3. Correlate for point tenderness at this level. 6. Cardiomegaly. BLLE DOPPLER IMPRESSION: No evidence of deep venous thrombus within the bilateral lower extremities. LEFT HIP XR IMPRESSION: No fracture or dislocation within the left hip. Impression - H&P Impression Assessment and Plan CHEST PAIN - admit to tele - patient presenting with midsternal chest pain that radiated to left side of the chest with associated left arm numbness, pain improved with SL nitro x 2 and nitro paste - 06/2016 - nuclear stress test showed small defect at the apical and anterior apex - 08/2016 - dobutamine stress echo negative for ischemic - initial troponin negative, EKG shows T-wave flattening in the inferior and lateral leads - continue to cycle cardiac enzymes, chest resting echo - PRN nitro and EKG with further chest pain - low suspicion for PE given past several supra therapeutic INRs - continue ASA and beta tarun, check lipids in AM - cardio consult LEFT HIP PAIN - XR negative for acute findings - has an appointment with ortho as an outpatient - PT/OT ATRIAL FIBRILLATION - rate mildly elevated on arrival, now improved - rate controlled on metoprolol, will continue - on Coumadin, INR 7.3; no signs of bleeding, hold Coumadin tonight, monitor INR CHRONIC DIASTOLIC CHF - appears euvolemic - continue Lasix HX CVA - continue statin HX ASCENDING AORTIC ANEURYSM - 4cm per CT chest 06/2016; not mentioned on CTA chest today BIPOLAR - continue home meds SEIZURE DISORDER - continue Keppra DVT PROPHYLAXIS - on Coumadin, supra therapeutic INR DISPO - The patient will be placed as observation status for now until further work up is complete. ADDENDUM: This is a 61 year old male with a PMH of bipolar disorder, alcohol abuse, seizure disorder, A. fib and chronic diastolic CHF - presents with chest pain and L hip pain. He mentions that the pain is constant about 3-4 out of 10 and in center of his chest, no radiation. Upon presentation, EKG with no T wave or ST changes, but in atrial fibrillation. initial cardiac enzymes negative CT negative for dissection, bilateral LE dopplers negative for DVT. Plan is to observe overnight cycle cardiac enzymes check an EKG in AM echo PT/OT for his L hip outpatient ortho appt at the end of July cardiology consulted for further input may need to start statin VTE Prophylaxis VTE Risk Assessment Done? Y/N: Yes Risk Level: Moderate Physical Exam (per Admitting): General Appearance: WD/WN, no apparent distress Head: normocephalic, atraumatic Eyes: normal inspection, EOMI, sclerae normal ENT: hearing grossly normal, + pertinent finding (mucous membranes moist) Neck: supple, no JVD, trachea midline Respiratory/Chest: no respiratory distress, + decreased breath sounds (BL bases) Cardiovascular: regular rate, rhythm, normal peripheral pulses, + pertinent finding (trace edema BLLE) Abdomen/GI: normal bowel sounds, non tender, soft, no organomegaly Extremities/Musculoskelatal: no calf tenderness, normal capillary refill, + pertinent finding (tenderness with palpation over the left hip) Neurologic/Psych: no motor/sensory deficits, alert, normal mood/affect, oriented x 3 Skin: normal color, warm/dry Hospital Course CHEST PAIN -Non Cardiac - admit to tele - patient presenting with midsternal chest pain that radiated to left side of the chest with associated left arm numbness, pain improved with SL nitro x 2 and nitro paste - 06/2016 - nuclear stress test showed small defect at the apical and anterior apex - 08/2016 - dobutamine stress echo negative for ischemic - initial troponin negative, EKG shows T-wave flattening in the inferior and lateral leads - continue to cycle cardiac enzymes, chest resting echo-unremarkable -CTA negative for dissection and no DVT - continue ASA and beta tarun, check lipids in AM-noted - cardio consult -appreciate input -Likely secondary to Costochondritis -No change on Cardiac medications -denies any more chest pain this morning -ready to be discharged LEFT HIP PAIN-Secondary to OA - XR negative for acute findings - has an appointment with ortho as an outpatient -will start small dose of Percocet -Continue PT/OT -doing better ATRIAL FIBRILLATION - rate mildly elevated on arrival, now improved - rate controlled on metoprolol, will continue - on Coumadin, INR 7.3; no signs of bleeding, hold Coumadin tonight, monitor INR -rate is controlled -monitor INR-2/1 0n 08/11/17 -start Coumadin from todays Has sleep Apnea and can not tolerate CPAP or BIPAP Take Oxygen at night HX ASCENDING AORTIC ANEURYSM - 4cm per CT chest 06/2016; not mentioned on CTA chest today -no symptoms CHRONIC DIASTOLIC CHF - appears euvolemic and CXR -negative - continue Lasix HX CVA - continue statin BIPOLAR - continue home Meds SEIZURE DISORDER - continue Keppra DVT PROPHYLAXIS - on Coumadin, supra therapeutic INR DISPO Discharge home today Has appointment with PCP on Thursday -advised to keep that appointment And Check INR Total time spent on discharge = 35 minutes This includes examination of the patient, discharge planning, medication reconciliation, and communication with other providers. Discharge Instructions Date of Service Aug 11, 2017. Admission Reason for Admission: chest pain Discharge Discharge Diagnosis / Problem: Chest pain-No ACS and Noncardiac,Left Hip pain- OA no fracture Discharge Goals Goal(s): Prevent Disease Progression Activity Recommendations Activity Limitations: resume your previous activity . Instructions / Follow-Up Instructions / Follow-Up Please keep appointment with your PCP on Thursday.Have INR checked .Strongly recommend management of Sleep Apnea Current Hospital Diet Patient's current hospital diet: AHA Diet (Heart Healthy) Discharge Diet Recommended Diet: AHA Diet (Heart Healthy) Pending Studies Studies pending at discharge: no Laboratory Results Hemoglobin A1c Test 08/08/17 09:00 Range/Units Estimated Average Glucose 131 mg/dl Hemoglobin A1c 6.2 H 4.5-5.6 % Lipid Panel Test 08/08/17 09:00 Range/Units Triglycerides Level 211 H 0-150 mg/dl Cholesterol Level 178 0-200 mg/dl HDL Cholesterol 35 mg/dl Cholesterol/HDL Ratio 5.1 LDL Cholesterol, Calculated 101 mg/dl Medical Emergencies . Who to Call and When: Medical Emergencies: If at any time you feel your situation is an emergency, please call 911 immediately. . Non-Emergent Contact Non-Emergency issues call your: Primary Care Provider . Past History Medical & Surgical History: (1) BPH (benign prostatic hyperplasia) (2) CAD (coronary artery disease) (3) Diastolic CHF (4) HTN (hypertension) (5) Hepatitis C (6) CVA (cerebral vascular accident) (7) Atrial fibrillation (8) Bipolar 1 disorder (9) Seizure disorder (10) Alcohol abuse . "Provider Documentation" section prepared by Mal Juárez. . VTE Core Measure Inpt VTE Proph given/why not?: Warfarin (Coumadin) <Electronically signed by Mal Juárez M.D.> Signed: 08/11/17 1111
[2017-08-11 11:43] VITALS: BP 108/74; PULSE 57; TEMP 36.6; O2SAT 97
[2017-08-11 11:55] VITALS: BP 108/74; PULSE 57; TEMP 36.6; O2SAT 97
== END 2017-08-11 12:50 | disposition home or self-care (01) ==
LOC: C.EDB 12:45 → C.MED 15:34 → ENRESERV 17:09
PROVIDERS: ADMIT Family Medicine; ATTEND Internal Medicine
DX: R07.89 Other chest pain (principal); I48.2 Chronic atrial fibrillation; I71.4 Abdominal aortic aneurysm, without rupture; F31.9 Bipolar disorder, unspecified; M25.552 Pain in left hip; N40.0 Benign prostatic hyperplasia without lower urinary tract symptoms; I25.10 Atherosclerotic heart disease of native coronary artery without angina pectoris; E66.01 Morbid (severe) obesity due to excess calories; I50.32 Chronic diastolic (congestive) heart failure; G47.33 Obstructive sleep apnea (adult) (pediatric); B18.2 Chronic viral hepatitis C; I10 Essential (primary) hypertension; F10.10 Alcohol abuse, uncomplicated; G40.909 Epilepsy, unspecified, not intractable, without status epilepticus; Z86.73 Personal history of transient ischemic attack (TIA), and cerebral infarction without residual deficits; Z87.891 Personal history of nicotine dependence; Z79.899 Other long term (current) drug therapy; Z79.01 Long term (current) use of anticoagulants; Z79.82 Long term (current) use of aspirin